=== PATIENT | male | born 1965 | race Two or more races ===

== ENCOUNTER 2016-12-01 12:36 | Inpatient (IN) | payer MEDICARE, MEDICAID ==
[2016-12-01] MEDS ORDERED: Aspirin Low Dose CHEW TAB* 81 MG PO ONE (12:47)
[2016-12-01 13:17] LABS: Hematocrit 42 % (42-52); Hemoglobin 14.5 g/dl (14.0-18.0); Mean Corpuscular HGB Conc 35 g/dl (31-36); Mean Corpuscular Hemoglobin 33 pg (27-31); Mean Corpuscular Volume 96 fL (80-94); Red Blood Count 4.39 10^6/ul (4.0-5.4); Red Cell Distribution Width 14 % (10.5-15); White Blood Count 5.9 10^3/ul (3.5-10.8)
[2016-12-01 13:18] LABS: Add Diff/Slide Review? Slide Review Added; Comments Flag Yes
[2016-12-01 13:29] LABS: Albumin 4.2 g/dL (3.2-5.2); BUN/Creatinine Ratio 18.4 (8-20); Calcium 9.1 mg/dL (8.6-10.3); EGFR African American 118.5 (>60); EGFR Non-African American 92.1 (>60); Globulin 3.5 g/dL (2-4); Potassium 3.7 mmol/L (3.5-5.0); Total Bilirubin 0.8 mg/dL (0.2-1.0); Total Protein 7.7 g/dL (6.4-8.9)
[2016-12-01 13:35] LABS: Troponin I 0.08 ng/mL (<0.04)
--- NOTE | 2016-12-01 13:51 | RAD ---
Indication: Chest pressure. Comparison: None. Technique: Upright AP 1259 hours Report: Linear extrinsic densities superimposed at the LEFT apex. No pneumothorax evident. Clear lungs and pleural spaces. The heart, pulmonary vasculature, and mediastinal contours are unremarkable. IMPRESSION: No evidence for acute intrathoracic disease.
[2016-12-01 14:07] LABS: Mean Platelet Volume 11 um3 (7.4-10.4)
[2016-12-01] MEDS ORDERED: Atorvastatin* 80 MG TAB PO ONE (14:27)
[2016-12-01] MEDS ORDERED: Ticagrelor* 90 MG TAB PO ONE ×2 (14:27→14:30)
[2016-12-01] MEDS ORDERED: Atorvastatin* 80 MG TAB ONE (14:30)
[2016-12-01] MEDS ORDERED: Heparin DRIP 25,000 UNITS(*) 25,000 UNITS/500 ML BAG IVPB SCH (14:30)
[2016-12-01] MEDS ORDERED: Acetaminophen TAB* 325 MG PO PRN (14:33)
[2016-12-01] MEDS ORDERED: Ondansetron INJ* 2 MG/ML VIAL IV PRN (14:33)
[2016-12-01] MEDS ORDERED: oxyCODONE SR TAB(*) 10 MG TAB.SR PO PRN (14:36)
[2016-12-01] MEDS ORDERED: clonazePAM TAB(*) 0.5 MG PO PRN (14:36)
[2016-12-01 14:56] LABS: Hematocrit 44 % (42-52); Mean Corpuscular HGB Conc 34 g/dl (31-36); Mean Corpuscular Hemoglobin 33 pg (27-31); Mean Corpuscular Volume 96 fL (80-94); Mean Platelet Volume 11 um3 (7.4-10.4); Red Blood Count 4.59 10^6/ul (4.0-5.4); Red Cell Distribution Width 14 % (10.5-15); White Blood Count 6.3 10^3/ul (3.5-10.8)
[2016-12-01 14:58] LABS: Comments Flag Yes
[2016-12-01] MEDS ORDERED: Heparin VIAL(*) 5000 UNITS/ML VIAL (FIVE THOUSAND) IV SCH (15:00)
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
[2016-12-01 15:18] LABS: Troponin I 0.11 ng/mL (<0.04)
[2016-12-01] MEDS ORDERED: Iohexol 350 (CONTRAST) 200 ML MDV IV ONE ×3 (15:21→17:17)
[2016-12-01] MEDS ORDERED: Heparin 2 UNITS/ML IVPREMIX* 3,000 ML IV ONE (15:22)
[2016-12-01] MEDS ORDERED: VERAPAMIL 2.5 MG/ML 4 ML VIAL ONE (15:29)
[2016-12-01] MEDS ORDERED: nitroGLYCERIN DRIP* 250 ML ONE ×2 (15:29→16:22)
[2016-12-01] MEDS ORDERED: Heparin(*) 1000 UNIT/ML 10 ML VIAL CATH LAB IV ONE (15:29)
[2016-12-01] MEDS ORDERED: Lidocaine 1% INJ* 10 MG/ML 30 ML SDV ONE (15:29)
[2016-12-01] MEDS ORDERED: fentaNYL* 50 MCG/ML 2 ML VIAL (100 MCG VIAL) ONE (15:44)
[2016-12-01] MEDS ORDERED: Midazolam* 1 MG/ML 5 ML VIAL (5 MG) ONE (15:44)
--- NOTE | 2016-12-01 16:06 | ECHO ---
Patient: JANA ROQUE [facility] Rec#: [id number] : 1965 Date: 12/01/2016 Age: 51y Height: 180 cm / 70.9 in Weight: 83 kg / 182.9 lbs Sex: M BSA: 2.03 Room#: [id number] Admit Date#: 12/01/2016 Type: Outpatient Referring: Lokesh Weir NP Reading: Jose L Valdez DO Cuff Folder: Jose Padilla RDCS Transthoracic Echocardiogram Indication: NSTEMI BP: 142/97 HR: 54 Rhythm: NSR Findings History: NSTEMI Technical Comments: The study quality is good. COMPLETED 1550 Left Ventricle: The left ventricular chamber size is normal. Mild concentric left ventricular hypertrophy is observed. Global left ventricular wall motion and contractility are within normal limits. There is normal left ventricular systolic function. The estimated ejection fraction is 55-60%. Discrepant data regarding diastolic function. Left Atrium: The left atrial chamber size is normal. Right Ventricle: The right ventricular chamber size and systolic function are within normal limits. Right Atrium: The right atrial cavity size is normal. Aortic Valve: The aortic valve is trileaflet. There is no evidence of aortic regurgitation. There is no evidence of aortic stenosis. Mitral Valve: The mitral valve leaflets appear normal. There is a trace of mitral regurgitation. There is no evidence of mitral stenosis. Tricuspid Valve: The tricuspid valve appears normal in structure and function. There is trace tricuspid regurgitation. Unable to estimate the right ventricular systolic pressure. Pulmonic Valve: The pulmonic valve appears normal. There is no evidence of pulmonic regurgitation. There is no pulmonic stenosis. Pericardium: There is no significant pericardial effusion. Aorta: There is mild dilatation of the ascending aorta. There is no dilatation of the aortic arch. There is mild dilatation of the aortic root. Pulmonary Artery: The main pulmonary artery is not well visualized. Venous: The venous system is not well visualized. Conclusions The left ventricular chamber size is normal. Mild concentric left ventricular hypertrophy is observed. There is normal left ventricular systolic function. The estimated ejection fraction is 55-60%. Global left ventricular wall motion and contractility are within normal limits. The left atrial chamber size is normal. The right ventricular chamber size and systolic function are within normal limits. Unable to estimate the right ventricular systolic pressure. No significant valvular abormalities noted There is no significant pericardial effusion. There is mild dilatation of the ascending aorta. There is mild to moderate dilatation of the aortic root. No prior studies available for comparison at time of interpretation. Measurements Name Value Normal Range RVIDd (AP) MM 1.9 cm - Name Value Normal Range RVIDd (AP) 2D 1.9 cm (0.9 - 2.6) RVDdMajor (2D) 2.1 cm (2.2 - 4.4) RAd ISD 4CH 4.4 cm (3.4 - 4.9) RA (A4C)W 1.1 cm (2.9 - 4.6) IVSd (2D) 1.1 cm (0.6 - 1) LVPWd (2D) 1.1 cm (0.6 - 1) LVIDd (2D) 5.3 cm (3.6 - 5.4) LVIDs (2D) 4.1 cm - LV FS (2D) 23 % (25 - 45) Aortic Annulus 2 cm (1.4 - 2.6) Ao root diameter (2D) 4.2 cm (2.1 - 3.5) Ascending Ao 3.6 cm (2.1 - 3.4) Aortic arch 2.9 cm (1.8 - 3.4) LA dimension (AP) 2D 3 cm (2.3 - 3.8) LAd ISD 4CH 3.4 cm (2.9 - 5.3) LA ISD 4CH W 2.6 cm (2.5 - 4.5) Name Value Normal Range LA ESV SP 4CH (A/L) 17 ml - LA ESV SP 2CH (A/L) 52 ml - LA ESV BP (A/L) 34 ml - LA ESV BP (A/L) index 16.74 ml/m2 - LA ESV SP 4CH (MOD) 15 ml - LA ESV SP 2CH (MOD) 56 ml - Name Value Normal Range MV E-wave Vmax 0.49 m/sec - MV deceleration time 213 msec - MV A-wave Vmax 0.52 m/sec - MV E:A ratio 0.96 ratio - LV septal e' Vmax 0.05 m/sec - LV lateral e' Vmax 0.05 m/sec - LV E:e' septal ratio 9.8 ratio - LV E:e' lateral ratio 9.8 ratio - Name Value Normal Range LVOT diameter 2.1 cm - LVOT Vmax 0.8 m/sec - Name Value Normal Range TR Vmax 1.5 m/sec - TR peak gradient 9 mmHg - IVC diameter 1.31 cm - Name Value Normal Range PV Vmax 0.7 m/sec -
[2016-12-01] MEDS ORDERED: Nitroglycerin TAB 0.4 MG* 0.4 MG TAB SL PRN (17:54)
[2016-12-01] MEDS ORDERED: NS 0.9% 1000 ML* 1,000 ML IV SCH (18:00)
[2016-12-01] MEDS ORDERED: nitroGLYCERIN DRIP* 25,000 MCG in PREMIX* 0 ML IV SCH (19:00)
[2016-12-01 19:55] LABS: Troponin I 0.24 ng/mL (<0.04)
--- NOTE | 2016-12-01 20:45 | HP ---
HISTORY AND PHYSICAL: DATE OF ADMISSION: 12/01/16 PRIMARY CARE PROVIDER: Dr. Gila Frey. She is located in [facility]. Her personal cellphone number is [phone]. Her office number is . ATTENDING PHYSICIAN: Amy Burt MD* (dictated by Lokesh Weir NP) CHIEF COMPLAINT: Chest pain. HISTORY OF PRESENT ILLNESS: Mr. Chance is a 51-year-old male patient, he has a history of hypertension, neuropathy, hyperlipidemia, hepatitis C, polysubstance abuse, COPD, chronic back pain, splenomegaly. He does have a history of HIV as well. He comes in today. He was visiting up in the [facility] to see what the sex of his granddaughter was going to be. He left last Sunday, while getting into the cab last Sunday, he noticed that when moving luggage, he started having chest discomfort. He went into the lobby of his building. He sat down, the discomfort went away. The star route mail driver was actually going to call the ambulance because he was not looking well. He refused this because he wanted to see what the sex of his grandchild was. He got into the car, the pain went away. He had no more symptoms throughout the week; however, this morning he woke up, he was brushing his teeth, around 10 o'clock started having an episode of substernal chest pain, associated shortness of breath, lasted a couple of minutes. Then it started again, lasted a little bit longer and it felt worse, again in the center of his chest and then it happened a third time where he was almost doubled over in pain, so he called 911. The pain was getting worse, so he decided to come in to the ER. Fortunately, he got here. He received 4 aspirin, he chewed them and the pain is now gone. He has not had any more recurrence of the pain. The patient states that about a week ago, he did state that he had an upper respiratory infection. He took a Z-Matthew, the symptoms resolved, but he says the pain today is nothing like he has ever felt before and the pain is not positional. It is not reproducible. It does not get worse if he takes a deep breath. He denies any recent fevers or chills. He does state that he does have bilateral leg pain, but he has a history of neuropathy. The patient was ultimately found to have an elevated troponin of 0.08 and the hospitalist service was asked to evaluate for admission. He denies any associated nausea or vomiting. PAST MEDICAL HISTORY: Significant for: 1. Hypertension. 2. Neuropathy. 3. Hyperlipidemia. 4. Hepatitis C. 5. Polysubstance abuse. 6. COPD. 7. Chronic back pain. 8. Splenomegaly. 9. HIV. PAST SURGICAL HISTORY: He has had a pneumothorax in the past. HOME MEDICATIONS: According to the list that we were able to obtain include: 1. Klonopin 1 to 2 mg every 8 hours as needed. 2. Norvasc 5 mg daily. 3. AndroGel 10 mg topically daily. 4. Paxil 20 mg daily. 5. Oxycodone 30 mg p.o. every 8 hours as needed. 6. Fish oil 1000 mg p.o. b.i.d. 7. Nadolol 40 mg p.o. daily. 8. Neurontin 600 mg p.o. every 8 hours. 9. Odefsey 1 tablet p.o. daily. 10. Marinol 5 mg p.o. b.i.d. 11. Cardura 4 mg p.o. daily. 12. Tivicay 50 mg daily. 13. Vitamin D3 at 50,000 units weekly. 14. ProAir 2 puffs inhaled 4 times a day as needed. 15. Methadone. He is unsure of the dose as he only gets prescribed a week's supply at a time and he tries to stretch this supply over a 2 to 3 week period, so the dose is unknown. We are trying to obtain this as he is going to bring in his own medication. ALLERGIES TO MEDICATIONS: Include PENICILLIN. FAMILY HISTORY: His father had an CO at the age of 42. SOCIAL HISTORY: He is a pack a day smoker for about 40 years. He does not drink alcohol. He has a former history of polysubstance abuse. Surrogate decision maker is his significant other. REVIEW OF SYSTEMS: There is no documented fever. He denied any weight changes to me. He denies having any double vision. There is no ear discharge. He denies having any rhinorrhea. There is no sore throat. There is no thyroid enlargement. There was chest pain per my HPI. There was no orthopnea. No nocturnal dyspnea. There is no abdominal pain. There is no nausea. No vomiting. No dysuria. No frequency. There is no loss of consciousness. No pruritus and no skin ulcerations. Review of 14 systems completed, all others negative. PHYSICAL EXAMINATION GENERAL: At this time, Mr. Chance is a 51-year-old male patient. He appears to be older than stated age. He appears to be chronically ill. VITAL SIGNS: Blood pressure 142/97 with a pulse of 54, respirations 18, O2 sat 93%, and temperature 99.2. HEENT: Head: Atraumatic and normocephalic. Eyes: EOMs intact. Sclerae anicteric and not pale. Throat: Oral mucosa appears to be dry. No oropharyngeal erythema. NECK: Supple. LUNGS: Clear to auscultation bilaterally. No wheezes, rales, or rhonchi. HEART: Sounds S1, S2. Regular rate and rhythm. He is bradycardic. ABDOMEN: Soft, flat, and nontender. Bowel sounds present. EXTREMITIES: Pulses 2+ throughout. He is able to move all 4 extremities with 5 /5 strength. NEUROLOGIC: The patient is awake. He is alert. He is oriented x3. His copy cutter are equal. Tongue midline. He had no gross focal deficits. SKIN: Intact. LABORATORY DATA AND DIAGNOSTIC STUDIES: Labs today reveal a WBC of 5.9, RBC of 4.39, hemoglobin 14.5, hematocrit of 42, platelet count of 64. His D-dimer was less than 200. His sodium was 133, potassium 3.7, chloride of 105, bicarb 26, BUN 16, creatinine of 0.87, his glucose was 114, lactic 0.7, calcium 9.1. Total bili 0.8, AST 22, ALT 25, alk phos 47. CK 97, CK-MB 2.4, troponin 0.08. Albumin of 4.2. He had a chest x-ray obtained today, which revealed no evidence for acute intrathoracic disease. There was an EKG obtained today as well. I do not have a previous for comparison. This showed a sinus bradycardia, rate of 54. He appears to have LVH. No ST elevations or T-wave inversions were noted. Old medical records were reviewed. ASSESSMENT AND PLAN: Mr. Chance is a 51-year-old male patient with complex medical history coming in to the ER today with complaints of chest discomfort, now found to have an indeterminate troponin. The concern for the chest pain was acute coronary syndrome. He will be admitted under inpatient status for: 1. Chest pain, concern for acute coronary syndrome and ST elevation myocardial infarction: At this point, I did discuss the case with Dr. Jose L Valdez of Cardiology, recommended Brilinta 180 now and then heparin drip and aspirin along with statin therapy. I did touch base with the patient's primary care provider due to the thrombocytopenia. The platelets of this patient typically run around 60,000 according to her. She is going to be sending over labs and reports. The patient does have again a history of HIV, splenomegaly and in addition to this, hepatitis C which certainly is probably contributing to the thrombocytopenia. We will get a Hematology/Oncology consultation to help us determine if dual antiplatelet therapy will be appropriate. Dr. Hernandez has been involved by Dr. Valdez. The plan will be again heparin drip, ICU. He is fortunately not having any chest pain now. I have ordered an echo. We will cycle the troponins and will continue to follow. 2. Hypertension: I will continue his medications as prescribed. 3. Neuropathy: Continue gabapentin. 4. Hyperlipidemia: We will check a lipid panel and go ahead and place him on statin therapy. 5. Hepatitis C and HIV: We will continue his medications. Actually, his virals according to his primary have been normal. His T4 count according to the primary, again she needs to get the records but to her knowledge, they have been running in the 300s. 6. Polysubstance abuse: I will try to get the patient's methadone dose and prescribe this. 7. Chronic obstructive pulmonary disease: We will go ahead and put him on p.r.n. albuterol. 8. Chronic pain: Continue medications as prescribed. 9. DVT prophylaxis: He will be on a heparin drip. 10. Code status is full code. 11. Fluids, electrolytes, and nutrition: He is n.p.o. TIME SPENT: Time spent on the admission was 90 minutes; greater than half the time was spent [id number] with the patient obtaining my history and physical, other half of the time spent going over the plan of care with the patient and implementing plan of care. I did discuss the plan of care with my attending, Dr. Burt, she is in agreement. LOKESH WIER NP CC: Dr. Gila Frey; Dr. Hernandez; Jose L Valdez DO; Dr. Blevins [id number]/[id number] #: [id number] [facility]
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
[2016-12-01] MEDS: Dronabinol CAP* 2.5 MG PO SCH (22:50)
[2016-12-01] MEDS: Ticagrelor* 90 MG TAB PO SCH (22:50)
[2016-12-01] MEDS: Gabapentin CAP(*) 300 MG PO SCH (22:50)
[2016-12-01 23:01] LABS: Troponin I 0.53 ng/mL (<0.04)
[2016-12-02 05:57] LABS: Hematocrit 39 % (42-52); Hemoglobin 13.4 g/dl (14.0-18.0); Mean Corpuscular HGB Conc 34 g/dl (31-36); Mean Corpuscular Hemoglobin 33 pg (27-31); Mean Corpuscular Volume 97 fL (80-94); Mean Platelet Volume 11 um3 (7.4-10.4); Red Blood Count 4.03 10^6/ul (4.0-5.4); Red Cell Distribution Width 14 % (10.5-15); White Blood Count 8.3 10^3/ul (3.5-10.8)
[2016-12-02 06:00] LABS: Comments Flag Yes
[2016-12-02 06:09] LABS: Albumin 3.7 g/dL (3.2-5.2); BUN/Creatinine Ratio 13.6 (8-20); Calcium 8.5 mg/dL (8.6-10.3); EGFR Non-African American 90.9 (>60); Globulin 3.1 g/dL (2-4); HDL Cholesterol 20.2 mg/dL; Potassium 3.3 mmol/L (3.5-5.0); Total Bilirubin 0.5 mg/dL (0.2-1.0); Total Protein 6.8 g/dL (6.4-8.9)
[2016-12-02 06:33] LABS: Troponin I 1.2 ng/mL (<0.04)
[2016-12-02] MEDS: Gabapentin CAP(*) 300 MG PO SCH ×3 (06:35→21:13)
[2016-12-02] MEDS ORDERED: Potassium Chlor TAB* 20 MEQ TAB.ER PO ONE (07:13)
--- NOTE | 2016-12-02 07:25 | PN ---
Subjective Date of Service: 12/02/16 Interval History: . no new c/o no current pain s/p cath yesterday with BM to L Cx. troponin values still increasing LAD dz noted --> plan for likely stress test (can be outpatient) to evaluate that distribution. patient in good spirits. Family History: Unchanged from Admission Social History: Unchanged from Admission Past Medical History: Unchanged from Admission Objective Active Medications: . Acetaminophen (Tylenol Tab*) 650 mg PO Q4H PRN PRN Reason: FEVER/PAIN Amlodipine Besylate (Norvasc Tab*) 5 mg PO DAILY [facility] Aspirin (Aspirin Low Dose Tab*) 81 mg PO DAILY [facility] Clonazepam (Klonopin Tab(*)) 1 mg PO Q8H PRN PRN Reason: ANXIETY Doxazosin Mesylate (Cardura Tab*) 4 mg PO DAILY [facility] Dronabinol (Marinol Cap*) 5 mg PO BID [facility] Last Admin: 12/01/16 22:50 Dose: 5 mg Gabapentin (Neurontin Cap(*)) 600 mg PO Q8HR [facility] Last Admin: 12/02/16 06:35 Dose: 600 mg Nitroglycerin/Dextrose 25,000 (mcg/ IV Solution) 250 mls @ 1.8 mls/hr IV .PER PARAMETERS JEANNE PRN Reason: 3 MCG/MIN Methadone HCl (Dolophine Tab*) 10 mg PO DAILY [facility] Nitroglycerin (Nitroglycerin Tab 0.4 Mg*) 0.4 mg SL Q5M PRN PRN Reason: ANGINA Dolutegravir Sodium ([Tivicay] 50 Mg) 50 mg PO DAILY [facility] Emtricitabine- Rilpivirine-Teno [ Odefsey 200-25-25 Mg ] 1 tab PO DAILY [facility] Ondansetron HCl (Zofran Inj*) 4 mg IV Q6H PRN PRN Reason: NAUSEA Oxycodone HCl (Oxycontin(*)) 30 mg PO Q8HR PRN PRN Reason: PAIN Paroxetine HCl (Paxil Tab*) 20 mg PO DAILY [facility] Potassium Chloride (Klor Con Er Tab*) 40 meq PO ONCE ONE Stop: 12/02/16 07:14 Rosuvastatin Calcium (Crestor (Nf)) 10 mg PO QPM [facility] Ticagrelor (Brilinta*) 90 mg PO BID [facility] Last Admin: 12/01/16 22:50 Dose: 90 mg . Vital Signs 12/01/16 12/01/16 12/01/16 14:33 15:00 16:38 Temperature 98.2 F 98.1 F Pulse Rate 57 Respiratory 15 14 Rate Blood Pressure 115/75 (mmHg) O2 Sat by Pulse 99 Oximetry 12/01/16 12/01/16 12/01/16 17:00 18:00 18:19 Temperature Pulse Rate Respiratory 16 16 Rate Blood Pressure 160/97 (mmHg) O2 Sat by Pulse Oximetry Appearance: no distress Ears/Nose/Mouth/Throat: NL Teeth, Lips, Gums, Clear Oropharnyx Neck: NL Appearance and Movements; NL JVP Respiratory: Symmetrical Chest Expansion and Respiratory Effort Cardiovascular: NL Sounds; No Murmurs; No JVD Abdominal: NL Sounds; No Tenderness; No Distention Lymphatic: No Cervical Adenopathy Extremities: No Edema Skin: No Rash or Ulcers Neurological: Alert and Oriented x 3 Lines/Tubes/Other Access: Clean, Dry and Intact Peripheral IV Nutrition: Taking PO's Result Diagrams: 12/02/16 05:18 12/02/16 05:18 Assess/Plan/Problems-Billing . Assessment: 51 year old man with chest pain, NSTEMI, s/p cath with BM stent to LCx and LAD dz noted but not treated because of unclear relation to presentation. PMH complicated and includes HIV, HepC, thrombocytopenia. Current Medications: - Acetaminophen 650 mg PO Q4H PRN FEVER/PAIN - Amlodipine Besylate (Norvasc Tab) 5 mg PO DAILY - Aspirin 81 mg PO DAILY - Clonazepam (Klonopin Tab) 1 mg PO Q8H PRN ANXIETY - Doxazosin 4 mg PO DAILY - Dronabinol (Marinol Cap) 5 mg PO BID - Gabapentin (Neurontin Cap) 600 mg PO Q8HR - Nitroglycerin drip (NOW OFF) - Methadone HCl (Dolophine Tab) 10 mg PO DAILY - Nitroglycerin 0.4 mg SL Q5M PRN ANGINA - Dolutegravir Sodium (Tivicay) 50 mg PO DAILY - Kiylkpzqrntvl-Viabztmpwlp-Mtvi [Odefsey 200-25-25 Mg] 1 tab PO DAILY - Ondansetron HCl (Zofran) 4 mg IV Q6H PRN NAUSEA - Oxycodone HCl (Oxycontin) 30 mg PO Q8HR PRN PAIN - Paroxetine HCl (Paxil) 20 mg PO DAILY - Rosuvastatin Calcium (Crestor) 10 mg PO QPM - Ticagrelor (Brilinta) 90 mg PO BID - Patient Problems (1) NSTEMI (non-ST elevated myocardial infarction) Current Visit: Yes Status: Acute Priority: High Code(s): I21.4 - NON-ST ELEVATION (NSTEMI) MYOCARDIAL INFARCTION Comment: - DAPT - ASA and Brilinta - Nitro gtt off - no current pain - troponin values noted -- LAD disease noted > ?stress test at some point to define significance of this lesion -- cardiology following and will direct that decision - bradycardic; no BB now - BP reasonable - Statin on board - Norvasc - nitro SL for pain, prn (2) HIV (human immunodeficiency virus infection) Current Visit: Yes Status: Chronic Priority: High Comment: - continue HAART - thrombocytopenia may be related to HAART or HIV. - viral counts reportedly undetectable (3) Hepatitis C Current Visit: Yes Status: Chronic Priority: High Comment: - viral counts undetectable, by report. (4) Thrombocytopenia Current Visit: Yes Status: Acute Code(s): D69.6 - THROMBOCYTOPENIA, UNSPECIFIED SNOMED Code(s): 760496602 Comment: - following platelet levels - plt 64 (stable) on 12/02/16 (5) HTN (hypertension) Current Visit: Yes Status: Acute Code(s): I10 - ESSENTIAL (PRIMARY) HYPERTENSION SNOMED Code(s): 22816379 (6) Hyperlipidemia Current Visit: Yes Status: Chronic Priority: High Code(s): E78.5 - HYPERLIPIDEMIA, UNSPECIFIED Comment: - Continue statin / crestor (7) Neuropathy Current Visit: Yes Status: Chronic Priority: Medium Code(s): G62.9 - POLYNEUROPATHY, UNSPECIFIED Comment: - Continue Gabapentin as ordered (8) Polysubstance abuse Current Visit: Yes Status: Chronic Priority: Medium Code(s): F19.10 - OTHER PSYCHOACTIVE SUBSTANCE ABUSE, UNCOMPLICATED Comment: - no current pain reported - continue outpatient methadone dosing.
[2016-12-02] MEDS ORDERED: amLODIPine TAB* 5 MG PO SCH (09:00)
[2016-12-02] MEDS: Ticagrelor* 90 MG TAB PO SCH ×2 (09:49→21:13)
[2016-12-02] MEDS: Methadone TAB* 10 MG PO SCH (09:50)
[2016-12-02] MEDS: Aspirin Low Dose CHEW TAB* 81 MG PO SCH (09:52)
[2016-12-02] MEDS: Dronabinol CAP* 2.5 MG PO SCH ×2 (09:53→21:13)
[2016-12-02] MEDS: PARoxetine HCL TAB* 20 MG PO SCH (10:49)
[2016-12-02] MEDS: Doxazosin TAB* 2 MG PO SCH (10:49)
[2016-12-02] MEDS: Nadolol TAB* 40 MG PO SCH (10:50)
[2016-12-02] MEDS: DOLUTEGRAVIR SODIUM 50 MG PO SCH (15:13)
[2016-12-02] MEDS: RILPIVIRINE PO SCH (15:13)
[2016-12-02] MEDS: TENOFOVIR ALAFENAMIDE PO SCH (15:13)
[2016-12-02] MEDS: EMTRICITABINE PO SCH (15:13)
[2016-12-02] MEDS ORDERED: CMCS: Rosuvastatin (NF) 10 MG TAB PO SCH (18:00)
[2016-12-02] MEDS ORDERED: Methadone TAB* 10 MG PO ONE (19:43)
--- NOTE | 2016-12-02 19:54 | PN ---
Progress Note - Progress Note Note: Received called from the patients primary care physician who confirmed the patient is on Methadone 100 mg . He says he only takes 80 mg. Will give him half the dose tonight because he has missed a couple of days.
--- NOTE | 2016-12-02 22:07 | CATH ---
CARDIAC CATHETERIZATION AND INTERVENTIONAL REPORT: DATE OF PROCEDURE: 12/01/16 INDICATION FOR PROCEDURE: Patient with NSTEMI with severe episodes of chest discomfort, abnormal troponins now for cardiac catheterization to assess for coronary artery disease and possible intervention. PROCEDURE: Coronary arteriography, balloon angioplasty and placement of a 2.75 x 32 mm long bare metal Rebel stent in the distal to mid circumflex followed by placement of a 3.0 x 8 mm long Rebel bare metal stent in the proximal circumflex. DESCRIPTION OF PROCEDURE: The patient was interviewed and examined in the emergency room with risks and benefits were explained to him and his family. He understood them and wished to proceed. The patient had already received Brilinta 180 mg as well as aspirin therapy. The patient was brought to the cardiovascular laboratory where a formal time-out was performed. The right radial artery was assessed for size and found to be acceptable for an approach and as such the patient was prepped and draped in a sterile fashion. The right radial artery was anesthetized with 1% lidocaine and under ultrasound guidance, the right radial artery was cannulated and a 6-Slovak Glidesheath was placed. Coronary arteriography to the right coronary artery was performed utilizing a 5- Slovak 4 curved TIG catheter. Coronary arteriography to the left coronary artery was obtained utilizing 6-Slovak VL 3.5 curved catheter. Of note, on initial insertion of the right radial artery sheath, the radial artery cocktail consisting of 3000 units of heparin, 300 micrograms nitroglycerin and 3 mg of verapamil were given. Once the decision was made to intervene in the circumflex artery, the patient received additional heparin boluses to maintain an ACT at 250 or greater. Guiding views were obtained utilizing the 6 Slovak VL 3.5 curved guide catheter. An 0.014 All Star wire was advanced to the distal portion of the circumflex artery Attempts were made to place a second wire in the distal most portion of the circumflex, but this was not able to be done and as such balloon angioplasty was performed to the distal lesion utilizing a 2.5 x 15 mm long Emerge balloon. Following this, a second All Start wire was advanced and placed in the second obtuse marginal branch. Balloon angioplasty of the ostium was performed utilizing a 2.25 x 8 mm long balloon. Following this, the 2.75 x 32 mm long bare metal stent was deployed in the distal to mid circumflex. Balloon angioplasty at high pressures utilizing an NC 2.75 x 12 mm balloon was performed. Following this there was a focal area of haze and compromise he proximal portion of the stent and despite balloon inflations, it seemed to persist and as such as 3.0 x 8 mm long bare metal stent was deployed with resolution of this. The artery was then assessed with the stent balloon withdrawn. At the end of the case, the catheter was removed and the radial artery sheath was removed and a hemostasis was obtained with Vasc Band. Reverse Barbeau was assessed and found to be AB. The total contrast used was 260 mL of Omnipaque dye. The total radiation exposure included 34.5 minutes of fluoro time. The air kerma radiation was 2101 milligray. The DAP radiation was 73178 microgray per meter squared. RESULTS: CORONARY ARTERIOGRAPHY: A. Right coronary artery - A dominant vessel with a mid area of 45% to 50% narrowing noted. It continued to supply a large low lying acute marginal branch , which supplied the distal intraventricular septum as well as continuing on to the posterior descending artery, which supplied the more proximal portion of the intraventricular septum. Of note, the low lying acute marginal branch supply not only the distal septum, but the distal anterior wall and apical region. B. Left coronary artery. 1. Left main - widely patent. 2. Left anterior descending artery. The left anterior descending artery had mild 20% narrowing in its proximal portion, just after the second larger septal cut plug packer there was a 75% narrowing noted. Past this point, was the take off of the mid diagonal branch with no significant disease and there was no significant disease to the distal portion of LAD, which traversed toward the apical region. 3. Circumflex artery - a nondominant vessel supplying a thin first obtuse marginal branch with a moderate sized second obtuse marginal branch followed by a third obtuse marginal branch, which had diffuse disease with an ostial 80% to 85% stenosis noted. Just prior to this 3rd obtuse marginal branch was narrowing of the vessel with haze with encompassing a long diffusely diseased segment of at least 80% stenosis leading to a 90% before a low lying last moderate sized obtuse marginal branch. INTERVENTION IN TO CIRCUMFLEX: Successful reduction of critical 90% stenosis and diffusely long segment of 80% stenosis utilizing balloon angioplasty and placement of a 2.75 x 32 mm long bare metal stent with a 3.0 x 8 mm long bare metal stent within the other stent for a haze area that is not improved with balloon angioplasty with TIMI3 flow, no dissection seen, 0% residual stenosis The 3rd diagonal branch ostial lesion of 85% was treated with balloon angioplasty with a residual narrowing of 75% to 80% noted, some of which may be secondary to spasm. OVERALL ASSESSMENT: Significant multivessel disease involving diffusely long segments within the circumflex treated with balloon angioplasty and stenting as described above. Patient still has residual disease involving the mid LAD as well as the ostium of the 3rd obtuse marginal branch, which for now will be treated medically with evaluation for potential need to intervene on the LAD vessel. Risk factor management with cholesterol management has been instituted by Dr. Jose L Valdez, the patient's primary envelope folding machine operator in the hospital and with institution of [facility]. Ongoing medical management, risk factor management will be pursued with the hospitalist and Dr. Valdez, especially consideration for smoking cessation as the patient has a long-term history of this. CC: Jose L Valdez DO; Eduardo Blevins MD; Gila Frey NP.* [id number]/[facility] #: [id number] [facility]
[2016-12-03] MEDS: Gabapentin CAP(*) 300 MG PO SCH ×2 (05:13→13:48)
[2016-12-03 05:44] LABS: Hematocrit 38 % (42-52); Hemoglobin 13.3 g/dl (14.0-18.0); Mean Corpuscular HGB Conc 35 g/dl (31-36); Mean Corpuscular Hemoglobin 33 pg (27-31); Mean Corpuscular Volume 96 fL (80-94); Mean Platelet Volume 10 um3 (7.4-10.4); Red Blood Count 3.98 10^6/ul (4.0-5.4); Red Cell Distribution Width 14 % (10.5-15); White Blood Count 5.2 10^3/ul (3.5-10.8)
[2016-12-03 05:47] LABS: Comments Flag Yes
[2016-12-03 05:57] LABS: BUN/Creatinine Ratio 13.5 (8-20); Calcium 8.1 mg/dL (8.6-10.3); EGFR African American 142.8 (>60); EGFR Non-African American 111.1 (>60); Potassium 3.4 mmol/L (3.5-5.0)
[2016-12-03] MEDS ORDERED: Potassium Chlor TAB* 10 MEQ TAB.ER PO ONE (07:42)
[2016-12-03] MEDS ORDERED: KCL 20 MEQ/100 ML IVPREMIX* 20 MEQ/100 ML BAG IV ONE (07:43)
[2016-12-03] MEDS ORDERED: amLODIPine TAB* 5 MG PO SCH (08:26)
[2016-12-03] MEDS: Doxazosin TAB* 2 MG PO SCH (10:08)
[2016-12-03] MEDS: Nadolol TAB* 40 MG PO SCH (10:09)
[2016-12-03] MEDS: EMTRICITABINE PO SCH (10:10)
[2016-12-03] MEDS: RILPIVIRINE PO SCH (10:10)
[2016-12-03] MEDS: TENOFOVIR ALAFENAMIDE PO SCH (10:10)
[2016-12-03] MEDS: DOLUTEGRAVIR SODIUM 50 MG PO SCH (10:11)
--- NOTE | 2016-12-03 10:11 | PN ---
Hospitalist Progress Note . HOSPITALIST DISCHARGE NOTE: See dc instructions and summary by me. Patient stable for dc dc instructions reviewed with the patient at the bedside. DC patient home today.
[2016-12-03] MEDS: Ticagrelor* 90 MG TAB PO SCH (10:14)
[2016-12-03] MEDS: Methadone TAB* 10 MG PO SCH (10:14)
[2016-12-03] MEDS: PARoxetine HCL TAB* 20 MG PO SCH (10:15)
[2016-12-03] MEDS: Aspirin Low Dose CHEW TAB* 81 MG PO SCH (10:15)
[2016-12-03] MEDS ORDERED: Methadone TAB* 10 MG PO ONE (10:33)
[2016-12-03] MEDS: Dronabinol CAP* 2.5 MG PO SCH (10:45)
[2016-12-03 13:21] VITALS: BP 113/59
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
--- NOTE | 2016-12-04 05:39 | DS ---
DISCHARGE SUMMARY: DATE OF ADMISSION: 12/01/16 DATE OF DISCHARGE: 12/03/16 PRIMARY CARE PROVIDER: Gila Frey NP, in [facility]. Cell phone number [phone], office number [phone]. TURKISH RUBBER: Dr. Jose L Valdez, [facility] Cardiology. HEMATOLOGY SPECIAL DEPUTY SHERIFF: Dr. Eduardo Blevins, [facility]. PRINCIPAL DISCHARGE DIAGNOSES: 1. Non-ST elevation myocardial infarction, status post cardiac catheterization with bare-metal stent placed to left circumflex - please see separate Cardiology consult note and cardiac catheterization from Dr. Jose L Valdez and Dr. Henrry Hernandez, respectively. 2. Thrombocytopenia with counts below 50,000 but with history of platelets in the same range. SECONDARY DIAGNOSES/PREEXISTING DIAGNOSES: 1. Hypertension. 2. Neuropathy. 3. Hyperlipidemia. 4. Hepatitis C - status post antiviral treatment and QVAR. 5. Polysubstance abuse - currently on methadone for previous heroin addiction. 6. Chronic obstructive pulmonary disease. 7. Chronic back pain. 8. Splenomegaly and thrombocytopenia, thought secondary to splenic sequestration in addition to possibly other causes. 9. Human immunodeficiency virus - viral counts below detectable limits. DISCHARGE MEDICATION REGIMEN: 1. Acetaminophen 650 mg by mouth every 4 hours as needed for pain/fever. 2. Aspirin 81 mg by mouth daily. 3. Brilinta 90 mg by mouth twice daily. (rx given) 4. Methadone 80 mg by mouth daily. 5. Nitroglycerin 0.4 mg tab sublingually every 5 minutes up to 3 times and call 911.(rx given) 6. Crestor 10 mg by mouth in the evening (written prescription given).(rx given ) 7. Clonazepam 2 mg by mouth every 8 hours as needed for anxiety. 8. Gabapentin 600 mg by mouth every 8 hours. 9. Doxazosin 4 mg by mouth daily. 10. Albuterol sulfate/Pro-Air 2 puffs inhaled 4 times daily as needed. 11. Cholecalciferol 50,000 units by mouth weekly. 12. Amlodipine 5 mg by mouth daily. 13. Mohawk-3 fatty acids 1000 mg by mouth twice daily. 14. Marinol 5 mg by mouth twice daily. 15. Clonazepam 1 mg by mouth every 8 hours as needed (as opposed to 2 mg as an option). 16. Emtricitabine/rilpivirine/tenofovir (Odefsey) 200/25/25 mg 1 tablet by mouth daily. 17. Tivicay (dolutegravir) 50 mg by mouth daily. 18. Paxil 20 mg by mouth daily. 19. Oxycodone extended release 30 mg by mouth every 8 hours as needed. 20. Testosterone 10 mg topically every morning/AndroGel. DISCHARGE INSTRUCTIONS: Followup lab work on 12/05/16 - CBC with results to Gila Frey NP, at fax number [phone]. HISTORY OF PRESENT ILLNESS AND HOSPITAL COURSE: Please see the H and P by Lokesh Weir NP, on 12/01/16. In brief, Mr. Chance is a 51-year-old male patient with a history of hypertension, neuropathy, hyperlipidemia, hepatitis C, polysubstance abuse, COPD, chronic back pain, splenomegaly, and HIV who was visiting [place] to visit his daughter and son-in-law when he started experiencing chest pain. It went away with rest but then, he re-experienced the pain and it was getting worse. So, he decided to come to the emergency room. He received aspirin on arrival and was started on anticoagulation and received additional antiplatelet therapy and was taken to cardiac catheterization. This was accomplished by Dr. Henrry Hernandez. Please see his cardiac catheterization procedure note for more details, but in summary, the patient had angioplasty to his left circumflex and a bare-metal stent placed out of consideration for the possibility need to withhold or interrupt dual- antiplatelet therapy because of pre- existing thrombocytopenia and splenomegaly. Relating to that, the patient has a history of hep C and portal hypertension and is also HIV positive and undergoing HAART therapy, all of which can, by different mechanisms, cause thrombocytopenia. During the hospitalization, the patient's platelets were generally above 50,000, although today, the day of discharge, his platelet count was 46K, raising some concern and that will be discussed below and that warrant's follow up of his CBC ( platelet count). The patient was started on aspirin and Brilinta. He was given a 5-day supply of Brilinta at discharge and he is being enrolled in a 30- day free-trial program and this is being arranged by case management and nursing. The patient's pharmacy is identified as [facility] on [address] [place] [address] --- phone number is [phone]. Of note, [facility] does not allow electronic prescribing, so the Crestor and SL nitroglycerin which were the new prescriptions other than Brilinta and ASA, were given in paper form to the patient. He does not have a local pharmacy and so, if he chooses to stay locally, he can have that filled at any pharmacy, and I can have it electronically prescribed if he tells me where to send it. In terms of the patient's followup care, it was not clear exactly where this will take place. I had a conversation with Gila Frey NP, and she is expecting him early this week down in [place]. He is being discharged on 12/03/16, and I encouraged his family to bring him down to [place] for followup labs on 12/05/16, and also for post acute care to include reconciliation of hospital information and medications, and so on. It is clear SRIKANTH Frey know him very well and is expecting to arrange cardiac and hematology consultations upon his arrival there. One medication issue was the patient's methadone. Apparently, he goes to methadone clinic weekly where he receives dosing for 100 mg daily, though he only takes 80 mg by mouth daily and he stockpiles enough methadone to go on trips, such as to [place]. It seems that there should be some mechanism for him to be able to visit his family without having to take a supply of methadone that cannot be easily verified or tracked in a more legitimate way. I would suggest dealing with the methadone clinic or coordinating through his primary care provider for trips like this. I do not know the timing of his most recent supply of methadone, but he tells me he ran out of the reserve that he created by the method above and I did call his methadone clinic to verify that he receives 100 mg by mouth daily. The patient for the first part of the hospitalization was getting 10 mg and actually did rather well and it was only until he realized he was not getting the 80 mg dose that he objected. In other words, there were no physical signs of withdrawal, though I did not want to have such an event occur to prove he needs it. In terms of the other medication changes, his nadolol was decreased from 40 mg to 20 mg for bradycardia in the 50s. I understand from his primary care doctor that he normally runs, if anything, tachycardic. Because of the long-acting nature of nadolol, it might have been that the 40 mg was still in his system on hospital day 2 and so, I continued him on 20 mg and he did well with that. The patient is prone to extreme anxiety and I witnessed that first hand as I was going over the major events of the hospitalization, he started feeling lightheaded and concerned he had right-sided chest pain that correlated more with potassium infusion he is receiving in his right arm. The patient has an EKG which is unremarkable and normal vital signs. His pain resolved spontaneously with relaxation and encouragement, and it did not respond to his sublingual nitroglycerin that his nurse gave as a prn.. The patient should follow up with Cardiology because there is LAD disease in addition to left circumflex disease that was intervened upon. He is undergoing medical therapy with aspirin, Brilinta, statin therapy, beta blockers, and other blood pressure agents, but should have a stress test to assess the significance of his LAD lesions. Again, please see the cardiac catheterization report for more details about his coronary anatomy and considerations for the intervention that he received. Return to ED instructions was given to Mr. Chance and his family. I spoke with 2 daughters and his son-in-law as well as multiple other family members who were present at different times throughout the hospitalization. He certainly has a good support system. I told them to bring him back to the emergency room if he has any worrisome chest pain or other symptomatology such as shortness of breath, lightheadedness, loss of consciousness, palpitations, or any other worrisome symptoms. Recommended specialty followup includes Cardiology as well as Hematology/ Oncology. Asked patient NOT TO DRIVE ALONE TO [place] -- his family has volunteered to take him and I asked that they do this. Other data during the hospitalization included a transthoracic echocardiogram done on 12/01/16 and revealed, in summary, a left ventricular chamber with normal size and normal systolic function with normal wall motion and contractility and with a left atrial chamber size that was also normal. The RV chamber size and systolic function were within normal limits, but right ventricular systolic pressure was unable to be measured. There was no significant valvular abnormalities noted, nor was there any significant pericardial effusion and there was mild dilatation of the ascending aorta and [id number] dilatation of the aortic root. With the ascending aorta dimension being 3.6 cm with the normal range listed as 2.1 to 3.4 cm as well as the aortic root diameter at 4.2 cm with the range of normal being 2.1 to 3.5. I should note I spoke with Gila Frey NP, and she welcomes Mr. Chance back for followup CBC on 12/05/16 without an appointment; that she would see him at any time. I will arrange this discharge summary and the cardiac catheterization and other documents to be faxed to her office by Sunday of this week, and I would mention that the patient and his family were discussing a permanent move to [place]. In that case, I would recommend advanced identification of a PCP in [place] and a deliberate transfer of medical documentation before this complicated patient with multiple medical problems finds himself without care. In particular, his methadone regimen, as an example , is something that would need identification for a plan of care. TIME SPENT: Total time taken to discharge Mr. Chance was 80 minutes, greater than half that time spent in the room going over the discharge instructions face -to-face with the patient and his family. CONDITION AT DISCHARGE: Stable. CC: Dr. Valdez; Dr. Eduardo Blevins; Gila Frey NP * [id number]/[facility] #: [id number] [facility]
== END 2016-12-03 16:22 | disposition home or self-care (01) | DRG 249 ==
LOC: ED 12:36 → ICU 14:23 → MEDTELE 12-03 01:34
PROVIDERS: ADMIT Hospitalist; ATTEND Internal Medicine
PROC: 02703EZ Dilation of Coronary Artery, One Artery with Two Intraluminal Devices, Percutaneous Approach (ICD-10-PCS; 2016-12-01)
PROC: 02703ZZ Dilation of Coronary Artery, One Artery, Percutaneous Approach (ICD-10-PCS; 2016-12-01)
PROC: B2111ZZ Fluoroscopy of Multiple Coronary Arteries using Low Osmolar Contrast (ICD-10-PCS; 2016-12-01)
PROC: 4A023N7 Measurement of Cardiac Sampling and Pressure, Left Heart, Percutaneous Approach (ICD-10-PCS; principal; 2016-12-01 15:00)
DX: I21.4 Non-ST elevation (NSTEMI) myocardial infarction (principal); D69.6 Thrombocytopenia, unspecified; K76.6 Portal hypertension; G62.9 Polyneuropathy, unspecified; R16.1 Splenomegaly, not elsewhere classified; I10 Essential (primary) hypertension; E78.5 Hyperlipidemia, unspecified; F19.10 Other psychoactive substance abuse, uncomplicated; J44.9 Chronic obstructive pulmonary disease, unspecified; G89.29 Other chronic pain; M54.9 Dorsalgia, unspecified; Z21 Asymptomatic human immunodeficiency virus [HIV] infection status; Z79.82 Long term (current) use of aspirin; B18.2 Chronic viral hepatitis C; N20.0 Calculus of kidney; I25.10 Atherosclerotic heart disease of native coronary artery without angina pectoris; Z82.49 Family history of ischemic heart disease and other diseases of the circulatory system; F17.200 Nicotine dependence, unspecified, uncomplicated; R00.1 Bradycardia, unspecified; Z88.0 Allergy status to penicillin
CPT/HCPCS: 36415; 71010; 80048; 80053; 80061; 82550; 82553; 83036; 83605; 84484; 85025; 85027; 85060; 85379; 85610; 85730; 93005; 93306; 93454; 99223; 99406; A9270-GY; C1725; C1769; C1876; C1887; J1644; J2250; J3010; J3480

== ENCOUNTER 2019-12-14 00:11 | Inpatient (IN) | payer MEDICARE, MEDICAID ==
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
[2019-12-14] MEDS ORDERED: Ticagrelor* 90 MG TAB PO ONE (00:24)
[2019-12-14] MEDS ORDERED: Heparin for STEMI(*) 5,000 UNITS/ML 1 ML VIAL IV ONE (00:24)
[2019-12-14] MEDS ORDERED: Heparin DRIP 25,000 UNITS(*) 25,000 UNITS/500 ML BAG IV SCH (00:45)
[2019-12-14] MEDS ORDERED: Heparin VIAL(*) 5000 UNITS/ML VIAL (FIVE THOUSAND) IV SCH (01:00)
[2019-12-14 01:03] LABS: Hematocrit 35 % (42-52); Hemoglobin 12.2 g/dL (14.0-18.0); Mean Corpuscular HGB Conc 35 g/dL (31-36); Mean Corpuscular Hemoglobin 32 pg (27-31); Mean Corpuscular Volume 91 fL (80-94); Red Blood Count 3.84 10^6 /uL (4.18-5.48); Red Cell Distribution Width 16 % (10-15); White Blood Count 3.9 10^3/uL (3.5-10.8)
[2019-12-14 01:05] LABS: ALT 12 U/L (7-52); Albumin 4.7 g/dL (3.2-5.2); Albumin/Globulin Ratio 1.2 (1-3); Alkaline Phosphatase 53 U/L (34-104); BUN/Creatinine Ratio 21.6 (8-20); Blood Urea Nitrogen 22 mg/dL (6-24); CO2 Carbon Dioxide 24 mmol/L (22-32); Calcium 9.2 mg/dL (8.6-10.3); Chloride 104 mmol/L (101-111); Creatine Kinase 102 U/L (10-223); EGFR African American 91.8 (>60); EGFR Non-African American 75.8 (>60); Glucose 88 mg/dL (70-100); LDL Cholesterol Direct 71 mg/dL; Sodium 136 mmol/L (135-145); Total Protein 8.7 g/dL (6.4-8.9)
[2019-12-14 01:09] LABS: Activated Partial Thrombo Time 31.6 seconds (26.0-38.0); INR 1.2 (0.82-1.09); Troponin I 0.05 ng/mL (<0.03)
[2019-12-14 01:10] LABS: CKMB ng/mL 2.7 ng/mL (0.6-6.3)
[2019-12-14] MEDS ORDERED: Heparin(*) 1000 UNIT/ML 10 ML VIAL CATH LAB IV ONE (01:15)
[2019-12-14] MEDS ORDERED: VERAPAMIL 2.5 MG/ML 2 ML VIAL ** 5 mg/2 ml ONE (01:15)
[2019-12-14] MEDS ORDERED: Heparin 2 UNITS/ML IVPREMIX* 2,000 ML IV ONE (01:15)
[2019-12-14] MEDS ORDERED: nitroGLYCERIN DRIP* 25,000 MCG/250 ML BTL ONE ×2 (01:16→01:20)
[2019-12-14] MEDS ORDERED: Lidocaine 1% INJ* 10 MG/ML 30 ML SDV ONE (01:16)
[2019-12-14] MEDS ORDERED: nitroGLYCERIN DRIP* 25,000 MCG/250 ML BTL IV ONE (01:19)
[2019-12-14 01:20] LABS: Anion Gap 8 mmol/L (2-11)
[2019-12-14 01:21] LABS: ABS Eosinophils 0.1 10^3/ul (0-0.6); ABS Lymphocytes 1.5 10^3/ul (1.0-4.8); ABS Monocytes 0.2 10^3/ul (0-0.8); ABS Neutrophils 2.1 10^3/ul (1.5-7.7); Eosinophil % 1.8 %; Lymphocyte % 38.3 %; Mean Platelet Volume 10.8 fL (7.4-10.4); Nucleated Red Blood Cells % 0.1; Platelet Count 76 10^3/uL (150-450)
[2019-12-14] MEDS ORDERED: Iohexol 350 (CONTRAST) 200 ML MDV IV ONE (01:21)
[2019-12-14] MEDS ORDERED: fentaNYL* 50 MCG/ML 2 ML VIAL (100 MCG VIAL) ONE (01:42)
[2019-12-14] MEDS ORDERED: Midazolam* 1 MG/ML 5 ML VIAL (5 MG) ONE (01:42)
[2019-12-14 01:59] LABS: Potassium Redraw 3.8 mmol/L (3.5-5.0)
[2019-12-14] MEDS ORDERED: Bivalirudin(*) 250 MG VIAL ONE (02:08)
[2019-12-14] MEDS ORDERED: Nitroglycerin TAB 0.4 MG* 0.4 MG TAB SL PRN (02:58)
[2019-12-14] MEDS: NS 0.9% 1000 ML** 1,000 ML IV SCH ×2 (03:41→10:31)
[2019-12-14] MEDS ORDERED: Metoprolol Tartrate TAB* 25 MG PO SCH (04:00)
[2019-12-14] MEDS ORDERED: oxyCODONE SR TAB(*) 20 MG TAB.SR PO PRN (04:01)
--- NOTE | 2019-12-14 04:10 | ADMNOTE ---
Subjective Interval History: this is my HP 54 yo male with hx of VA s/p stent placement presented with sharp constant left sided chest pain that started a few hours before. He said it was similar to when he had an VA several years ago. Pain relieved with rest. EMS administered aspirin en route. EKG reviewed by cardiology and it was concerning for posterior VA but there were some questions on whether these were just chronic. Pt was taken to the labor custodian. Pt received 1 stent to the LAD for a critical lesion but likely was having unstable angina/NSTEMI. Family History: Unchanged from Admission Social History: Unchanged from Admission Past Medical History: Unchanged from Admission Review of Systems - Measurements Intake and Output: Intake and Output Last 24 Hours 12/11/19 12/12/19 12/13/19 12/14/19 06:59 06:59 06:59 06:59 Weight 155 lb - Review of Systems Constitutional Symptoms: Negative: Weight Gain, Weight Loss, Weakness, Fatigue, Fever, Night Sweats, Unexplained Falls, Other Dermatology: Negative: Normal, Rash, Skin Lesions, Cancer, Skin Lumps, Other HEENT: Negative: Normal, Change in Hearing, Vertigo, Dental Problems, Tinnitus, Sinus Problem, Other Eyes: Negative: Normal, Change in Vision, Double Vision, Eye Pain, Glaucoma, Cataract, Contacts or Glasses, Other Thyroid: Negative: Normal, Goiter, Thyroid Nodule, Cold Intolerance, Heat Intolerance , Sweatiness, Tremor, Frequent Defecation, Constipation, Palpitations, Primary Hypothyroidism, Primary Hyperthyroidism, Weight Loss, Weight Gain, Change in Skin/Hair, Change in Menstruation, Radiation Exposure, Other Pulmonary: Negative: Normal, Cough, Sputum, Hemoptysis, Wheezing, Respiratory Distress, Shortness of Breath, COPD, Asthma, Exercise Intolerance, Home Oxygen, Other Cardiology: Negative: Normal, Chest Pain, Shortness of Breath, Palpitations, Swelling of Ankles, Peripheral Vascular Dis, Edema, Faintness, Syncope, Claudication, Proximal NocturnalDyspnea, Orthopnoea, Other Gastroenterology: Negative: Normal, Abdominal Pain, Nausea, Vomiting, Anorexia, Indigestion, Difficulty Swallowing, Heartburn, Constipation, Diarrhea, Blood in Stools, Change in Bowel Habits, Haematemesis, Melena, Other Genital - Urinary: Negative: Normal, Dysuria, Hematuria, Polyuria, Nocturia, Other Musculoskeletal: Negative: Joint Pain, Joint Stiffness, Arthritis, Osteoporosis, Low Back Pain , Sciatica, Joint Deformities, Kyphoscoliosis, Other Endocrinology: Negative: Normal, Thyroid Problems, Adrenal Problems, Gonadal Problems, Family Hx Endocrine Disorders, Obesity, Diabetes Mellitus, Hyperglycemia, Hx Hypoglycemia, Diabetic Foot Ulcers, Calluses, Hirsutism, Menstrual Abnormalities , Polydipsia, Polyuria, Gonadal Problems, Gynecomastia, Pituitary disease, Other Neurology: Negative: Normal, Headache, Migraines, Change in Vision, Diplopia, Dizziness , Change in Balancing, Change in Coordination, Change in Memory, Change in Speech, Change in Sphincter Function, Change in Walking, Numbness\Paresthesiae, Unexplained Weakness, Hx of Stroke\TIA, Hx of Seizures, Other Objective Active Medications: Amlodipine Besylate (Norvasc Tab*) 5 mg PO DAILY [facility] Aspirin (Aspirin 81 Mg Chew Tab*) 81 mg PO DAILY [facility] Atorvastatin Calcium (Lipitor*) 40 mg PO 1700 [facility] Emtricitabine/Rilpivirine/Tenofovir (Odefsey Tablet) each PO DAILY [facility] Heparin Sodium (Porcine) (Heparin Vial(*)) 0 units IV .PER PROTOCOL [facility] Nitroglycerin/Dextrose (Nitroglycerin Drip*) 25,000 mcg in 250 mls @ 6 mls/hr IV ED ONCE ONE; Protocol Stop: 12/15/19 18:58 Last Admin: 12/14/19 01:24 Dose: 6 mls/hr Sodium Chloride (Ns 0.9% 1000 Ml) 1,000 mls @ 100 mls/hr IV PER RATE [facility] Stop: 12/14/19 11:14 Last Admin: 12/14/19 03:41 Dose: 100 mls/hr Methadone HCl (Dolophine Tab*) 80 mg PO DAILY [facility] Metoprolol Tartrate (Lopressor Tab*) 12.5 mg PO Q8HR [facility] Last Admin: 12/14/19 03:46 Dose: 12.5 mg Nitroglycerin (Nitroglycerin Tab 0.4 Mg*) 0.4 mg SL Q5M PRN PRN Reason: ANGINA Non-Formulary Medication (Oxycodone Hcl [Oxycodone Hcl Er 30 Mg]) 20 mg PO Q8HR PRN PRN Reason: PAIN Ticagrelor (Brilinta*) 90 mg PO BID [facility] Vital Signs - 8 hr 12/14/19 12/14/19 12/14/19 00:13 00:19 00:22 Temperature 98.6 F Pulse Rate 84 75 74 Respiratory 20 17 20 Rate Blood Pressure 152/92 152/92 (mmHg) O2 Sat by Pulse 100 99 Oximetry 12/14/19 12/14/19 12/14/19 00:24 00:26 00:41 Temperature Pulse Rate 74 70 Respiratory 17 17 Rate Blood Pressure 178/101 (mmHg) O2 Sat by Pulse 100 100 100 Oximetry 12/14/19 12/14/19 12/14/19 00:49 00:59 01:00 Temperature Pulse Rate 68 68 67 Respiratory 21 18 13 Rate Blood Pressure 166/100 163/95 (mmHg) O2 Sat by Pulse 100 100 96 Oximetry 12/14/19 12/14/19 12/14/19 01:08 01:19 01:21 Temperature 97.7 F Pulse Rate 68 70 68 Respiratory 17 19 15 Rate Blood Pressure 163/95 196/112 166/117 (mmHg) O2 Sat by Pulse 100 100 100 Oximetry 12/14/19 01:36 Temperature 98.3 F Pulse Rate 98 Respiratory 18 Rate Blood Pressure 166/117 (mmHg) O2 Sat by Pulse 100 Oximetry Oxygen Devices in Use Now: Nasal Cannula Eyes: No Scleral Icterus, PERRLA Ears/Nose/Mouth/Throat: Mucous Membranes Moist Neck: NL Appearance and Movements; NL JVP, Trachea Midline Respiratory: Symmetrical Chest Expansion and Respiratory Effort, Clear to Auscultation, Clear to Percussion, Clear to Palpation Cardiovascular: NL Sounds; No Murmurs; No JVD, No Edema Abdominal: NL Sounds; No Tenderness; No Distention, No Hepatosplenomegaly Lymphatic: No Cervical Adenopathy Extremities: No Edema, No Clubbing, Cyanosis Skin: No Rash or Ulcers Neurological: Alert and Oriented x 3 Result Diagrams: 12/14/19 00:43 12/14/19 01:35 Assess/Plan/Problems-Billing Assessment: - Patient Problems (1) NSTEMI (non-ST elevated myocardial infarction) Current Visit: No Status: Acute Priority: High Code(s): I21.4 - NON-ST ELEVATION (NSTEMI) MYOCARDIAL INFARCTION SNOMED Code(s): 76995939 Comment: from ED to [facility]. Received 1 stent to the LAD DAPT: aspirin and brilinta Nitro gtt no pain at this time BB, statin Echo in am (2) HIV (human immunodeficiency virus infection) Current Visit: No Status: Chronic Priority: High Comment: continue HAART - thrombocytopenia may be related to HAART or HIV. - viral counts reportedly undetectable (3) Thrombocytopenia Current Visit: No Status: Acute Code(s): D69.6 - THROMBOCYTOPENIA, UNSPECIFIED SNOMED Code(s): 273891148 Comment: stable (4) HTN (hypertension) Current Visit: No Status: Acute Code(s): I10 - ESSENTIAL (PRIMARY) HYPERTENSION SNOMED Code(s): 14039249 Comment: norvasc 5 mg (5) Hyperlipidemia Current Visit: No Status: Chronic Priority: High Code(s): E78.5 - HYPERLIPIDEMIA, UNSPECIFIED SNOMED Code(s): 53529275 Comment: Continue statin / crestor (6) Neuropathy Current Visit: No Status: Chronic Priority: Medium Code(s): G62.9 - POLYNEUROPATHY, UNSPECIFIED SNOMED Code(s): 547328411 Comment: - Continue Gabapentin as ordered (7) Polysubstance abuse Current Visit: No Status: Chronic Priority: Medium Code(s): F19.10 - OTHER PSYCHOACTIVE SUBSTANCE ABUSE, UNCOMPLICATED SNOMED Code(s): 565585478 Comment: continue outpatient methadone dosing. oxycodone is still listed as a current med and pt said he takes both? pharmacy to confirm. (8) DVT prophylaxis Current Visit: No Status: Acute Code(s): Z29.9 - ENCOUNTER FOR PROPHYLACTIC MEASURES, UNSPECIFIED SNOMED Code(s): 942669872 (9) Full code status Current Visit: No Status: Acute Code(s): Z78.9 - OTHER SPECIFIED HEALTH STATUS SNOMED Code(s): 662841548
[2019-12-14 06:48] LABS: ABS Eosinophils 0.1 10^3/ul (0-0.6); ABS Lymphocytes 3.7 10^3/ul (1.0-4.8); ABS Monocytes 0.4 10^3/ul (0-0.8); ABS Neutrophils 3.2 10^3/ul (1.5-7.7); Eosinophil % 1.2 %; Hematocrit 33 % (42-52); Hemoglobin 11.4 g/dL (14.0-18.0); Lymphocyte % 49.7 %; Mean Corpuscular HGB Conc 35 g/dL (31-36); Mean Corpuscular Hemoglobin 32 pg (27-31); Mean Corpuscular Volume 92 fL (80-94); Mean Platelet Volume 10.9 fL (7.4-10.4); Platelet Count 78 10^3/uL (150-450); Red Blood Count 3.58 10^6 /uL (4.18-5.48); Red Cell Distribution Width 16 % (10-15); White Blood Count 7.5 10^3/uL (3.5-10.8)
[2019-12-14 06:57] LABS: ALT 8 U/L (7-52); AST 16 U/L (13-39); Albumin 4.2 g/dL (3.2-5.2); Albumin/Globulin Ratio 1.4 (1-3); Alkaline Phosphatase 44 U/L (34-104); Anion Gap 11 mmol/L (2-11); BUN/Creatinine Ratio 23.6 (8-20); Blood Urea Nitrogen 21 mg/dL (6-24); CO2 Carbon Dioxide 18 mmol/L (22-32); Chloride 106 mmol/L (101-111); Cholesterol 100 mg/dL; Creatine Kinase 113 U/L (10-223); EGFR African American 107.4 (>60); EGFR Non-African American 88.7 (>60); Glucose 94 mg/dL (70-100); HDL Cholesterol 33.7 mg/dL; LDL Cholesterol 49 mg/dL; Potassium 3.3 mmol/L (3.5-5.0); Sodium 135 mmol/L (135-145); Total Protein 7.2 g/dL (6.4-8.9); Triglycerides 86 mg/dL
[2019-12-14 07:01] LABS: CKMB ng/mL 7.5 ng/mL (0.6-6.3)
[2019-12-14 07:19] LABS: Troponin I 0.74 ng/mL (<0.03)
[2019-12-14] MEDS: Aspirin 81 mg CHEW TAB* 81 MG TAB.CHEW PO SCH (08:36)
[2019-12-14] MEDS: Methadone TAB* 10 MG PO SCH (08:36)
[2019-12-14] MEDS: Ticagrelor* 90 MG TAB PO SCH ×2 (08:36→20:27)
[2019-12-14] MEDS: amLODIPine TAB* 5 MG PO SCH (08:36)
[2019-12-14] MEDS: Heparin VIAL(*) 5000 UNITS/ML VIAL (FIVE THOUSAND) SUBCUT SCH ×2 (08:37→20:27)
[2019-12-14] MEDS ORDERED: Emtricitabine/Rilpivirine/Teno (Odefsey) 200/25/25 TABLET PO SCH (09:00)
[2019-12-14] MEDS ORDERED: Potassium Chlor TAB* 20 MEQ TAB.ER PO ONE (09:31)
[2019-12-14] MEDS ORDERED: Metoprolol Succinate XL TAB* 25 MG PO ONE (09:40)
--- NOTE | 2019-12-14 11:35 | ECHO ---
*[facility]* [place] [address] Fax #: [phone] Transthoracic Echocardiogram Patient: Ash Chance : 1965 Study Date: 12/14/2019 Age: 54 Gender: M HR: 61 bpm Height: 70 in /177.8 cm BSA: 1.87 m^2 Weight: 154.7 lb /70.3 kg BMI: 22.2 kg/m^2 *[employer]: * Katie Bell *Referring Physician: * Henrry Hernandez MD *Reading Physician: * Herb Rincon MD Indications: Myocardial Infarction (new). History: Acute coronary syndrome. Risk factors: Current tobacco use. Family history is significant for coronary artery disease. Conclusions Summary: - Left ventricle: Wall thickness is mildly increased. Normal left ventricular size. Systolic function is normal. The estimated ejection fraction is 55-60%. Wall motion is normal; there are no regional wall motion abnormalities. - Normal cardiac chamber sizes. - Functionally benign heart valves. - Aorta: The aortic root is moderately dilated. - Since the prior echocardiogram completed 12/01/16, there appears to be little change. Study data: Transthoracic echocardiogram. Procedure: Transthoracic echocardiography was performed. Image quality was good. Complete 2D, spectral Doppler, and color flow Doppler. Location: ICU Patient status: Inpatient. Patient room number: 3. Rhythm: Normal sinus rhythm. Findings Left ventricle: Wall thickness is mildly increased. Normal left ventricular size. Systolic function is normal. The estimated ejection fraction is 55-60%. Wall motion is normal; there are no regional wall motion abnormalities. Left ventricular diastolic function parameters are indeterminate. Right ventricle: The cavity size is normal. Systolic function is normal. Left atrium: The atrium is normal in size. Right atrium: The atrium is normal in size. Mitral valve: The valve is structurally normal. There is trace regurgitation. Aortic valve: The valve is structurally normal. The valve is trileaflet. Cusp separation is normal. Transvalvular velocity is within the normal range. There is no evidence of stenosis. There is no significant regurgitation. Tricuspid valve: The valve is structurally normal. There is trace regurgitation. Pulmonic valve: The valve is structurally normal. There is no evidence of stenosis. There is no significant regurgitation. Aorta: Ascending aorta: The ascending aorta is appears normal. The aortic arch appears normal. The aortic root is moderately dilated. Pericardium: There is no significant pericardial effusion. Pulmonary arteries: Systolic pressure can not be accurately estimated. Systemic veins: Inferior vena cava: The vessel is normal in size. There is (>= 50%) respiratory change in the IVC dimension. Pulmonary veins: The Pulmonary veins appear normal. Measurements Left ventricle Value Ref Aortic valve continued Value Ref DENY, LAX 4.2 cm 4.2 - Mean grad, S 4.0 mm Hg ----- 5.8 Peak grad, S 7.0 mm Hg ----- ESD, LAX 2.9 cm 2.5 - SARAY, VTI 2.34 cm^2 ----- 4.0 SARAY, Vmax 2.53 cm^2 ----- FS, LAX 32 % 25 - 43 PW, ED, LAX (H) 1.2 cm 0.6 - Mitral valve Value Ref 1.0 Peak E 0.59 m/sec ----- E', lat eric, TDI (L) 7.3 cm/sec >=10.0 Peak A 0.53 m/se c ----- E/e', lat eric, TDI 8 -------- Decel time 264 ms - ---- Peak E/A ratio 1.1 ----- LVOT Value Ref Diam, S 1.90 cm -------- Pulmonic valve Value Ref Area 2.8 cm^2 -------- Peak v, S 0.64 m/sec ----- Peak jeanne, S 1.15 m/sec -------- Peak grad, S 2.0 mm Hg ----- Peak grad, S 5 mm Hg -------- Mean grad, S 2 mm Hg -------- Tricuspid valve Value Ref SV 66 ml -------- TR peak v 2.29 m/sec <=2 .8 Peak RV-RA grad, S 21 mm Hg ----- Ventricular septum Value Ref Max TR jeanne 2.29 m/sec ----- IVS, ED (H) 1.4 cm 0.6 - 1.0 Aortic root Value Ref Root diam (H) 4.6 cm <4. 0 Right ventricle Value Ref DENY, LAX 2.7 cm -------- Ascending aorta Value Ref AAo AP diam, S 3.4 cm ----- Left atrium Value Ref ML dim, A4C 4.3 cm -------- Aortic arch Value Ref SI dim, A4C 4.6 cm -------- Arch diam 3.0 cm ----- Vol/bsa, ES, 1-p 25 ml/m^2 12 - 37 A4C Decending aorta Value Ref Vol/bsa, ES, A/L 31 ml/m^2 16 - 34 Giacomo peak jeanne 0.76 m/sec ----- Right atrium Value Ref Inferior vena cava Value Ref SI dim, ES 4.5 cm 3.4 - Diam 1.8 cm ----- 5.3 ML dim, ES, A4C 4.4 cm 2.6 - 4.4 SI dim, ES, A4C 4.5 cm 3.4 - 5.3 Aortic valve Value Ref Peak v, S 1.29 m/sec -------- VTI, S 28.2 cm -------- Legend: (L) and (H) sandy values outside specified reference range. Prepared and electronically signed by Herb Rincon MD 12/14/2019 11:35
--- NOTE | 2019-12-14 12:36 | CONS ---
CC: [facility] ; Dr. Jose L Valdez, [facility] INTERVENTIONAL CARDIOLOGY CONSULT NOTE: DATE OF CONSULT: 12/14/19 CHIEF COMPLAINT: Patient with history of prior stents to the circumflex, now with severe episode of chest discomfort, abnormal EKG, rule out acute coronary syndrome. HISTORY OF PRESENT ILLNESS: The patient is a 54-year-old gentleman known to me from his prior cardiac history back in November 2016. He now presents stating that over the past couple of weeks with exertion, he has had significant chest discomfort. He would have shortness of breath with it as well. On the day of admission, he had just eaten a hamburger and developed the onset of significant symptoms after he had walked. He called his son when they started at 11 p.m. His son called the paramedics. Paramedics arrived and performed an EKG. The EKG by the paramedics had revealed downsloping ST segments in the mid anterior leads. They did not feel this was a STEMI and had not considered a possibility of perhaps a posterior ST segment elevation inferior wall myocardial infarction. Interestingly, the patient had taken an aspirin, and by the time the ambulance got there, his symptoms were almost completely gone, and en route , his symptoms went away. In the emergency room, he was pain free. The emergency room physician repeated the EKG and saw similar changes. When I saw the patient, he was without significant chest discomfort. He had had one more EKG of those showing the ST segment abnormalities. I then compared this to November 2016 when we had placed 2 stents to his circumflex artery. Compared the today's EKG with Dr. Valdez's from 2018, one year after we had performed the intervention on Ash, these EKG findings are new as he had no significant ST segment changes on that EKG. Given the findings of new EKG changes and progressive unstable angina to the point of having it after sitting and eating a hamburger, the decision was made to proceed to the cardiovascular laboratory. The risks and benefits were explained. He understood them and wished to proceed. In the emergency room, he was given 180 mg of Brilinta. He was given heparin weight adjusted bolus and had already received aspirin. His past cardiac history dates back to 2016 as mentioned in November when he presented with a non-STEMI, and at that point, he had a platelet count in the 40 ,000. A discussion was made with Hematology/Oncology, Dr. Eduardo Blevins, who asked to us place bare-metal stents because he did not known what direction the platelet count would potentially go. As such, he underwent cardiac catheterization and was noted to have significant disease of the circumflex artery with the greatest narrowings in the distal circumflex and the mid circumflex and subsequently had a 2.75 x 32 mm long bare-metal stent placed in the distal to mid circumflex with a placement of a 3.0 x 8 mm long in the proximal circumflex. At that point, he had also had disease with an LAD lesion that looked to be as much as 70% to 75% and was to be assessed as an outpatient. Interestingly according to the patient, he had had a chemical nuclear stress test within the past 6 months and was not told of any major issues that would need repeat heart catheterization. At home, he had been on aspirin in addition to Crestor as well as metoprolol, all of the doses of which we do not know and he does not remember at this time. PAST MEDICAL HISTORY: 1. CAD as described above. 2. Hypertension. 3. Hyperlipidemia. 4. Hepatitis C for which he has been treated and states he has been cured. 5. HIV for which he says his titers are extremely low. 6. Splenomegaly. 7. He has a remote history of drug usage. 8. He has a history of chronic obstructive lung disease. 9. Chronic pain syndrome. 10. Neuropathy. PAST SURGICAL HISTORY: History of a pneumothorax. FAMILY HISTORY: Father had an AK at 42. SOCIAL HISTORY: He has just moved from [facility] to [facility] 2 weeks ago. He still smokes approximately 2 to 3 cigarettes a day. REVIEW OF SYSTEMS: Pertinent for proceeding to the cardiovascular laboratory for acute intervention. He denies any stroke or TIA. He denies any recent history of hematochezia, hematuria, or hematemesis. He denies any history of significant renal disease and he has no contrast allergy. PHYSICAL EXAMINATION: When I saw him in the emergency room revealed the patient mildly anxious with no acute chest discomfort. Blood pressure 153/103, pulse 70, respirations 16. Neck is supple. No increased JVP. Lungs are clear with no active rales, rhonchi, or wheezes. Heart reveals regular rate and rhythm without significant murmur. Abdomen is soft, nontender, question of an increased spleen is raised. Extremities are without significant edema. Pulses are intact. Neuro: The patient is alert and oriented with normal mentation. Musculoskeletal: The patient moves all extremities appropriately. Psychological: The patient with appropriate affect. DIAGNOSTIC STUDIES/LAB DATA: Laboratory results are pending at the time of the initial assessment in the emergency room, but slowly started coming back with a troponin of 0.05, hemoglobin and hematocrit of 12.2 and 35, and platelet count now 76,000 (of note, he was a 153,000 some 2 to 3 weeks ago), white count of 3900, BUN and creatinine of 22 and 1.0. EKG #1 in the emergency room revealed sinus rhythm, heart rate [address] segment downsloping and T-wave inversion in V2 and V3 and aVL. Second EKG showed worsening of the ST segment changes with V2 through V5 and aVL. The third showed no change from the prior one. OVERALL ASSESSMENT: Ash presents now with acute coronary syndrome with most likely a [id number]-[id number] myocardial infarction, although theoretically could not rule out posterior involvement. Given the fact that if it was posterior the STs would still be elevated, I would expect that he is to be having ongoing symptoms with a ST-segment elevation myocardial infarction. He has been appropriately treated with aspirin, Brilinta, and heparin and we will go emergently to the cardiovascular laboratory with further management pending results. He understands the risks and benefits and wished to proceed. We will most likely have the patient admitted by the hospitalist service given the fact that he has multiple medical issues with history of hepatitis, with his human immunodeficiency virus, and in addition, his chronic obstructive lung disease and also anxiety problems. [id number]/[facility] #: [id number] RAFI
[2019-12-14] MEDS: Lisinopril TAB* 5 MG PO SCH (13:03)
--- NOTE | 2019-12-14 13:21 | PN ---
Subjective Date of Service: 12/14/19 Interval History: Pt is feeling well. He is a little anxious currently. He typically takes clonazepam twice daily at home and has not had any today. He denies any CP or SOB. No wrist discomfort. Objective Active Medications: Amlodipine Besylate (Norvasc Tab*) 5 mg PO DAILY [facility] Last Admin: 12/14/19 08:36 Dose: 5 mg Aspirin (Aspirin 81 Mg Chew Tab*) 81 mg PO DAILY [facility] Last Admin: 12/14/19 08:36 Dose: 81 mg Atorvastatin Calcium (Lipitor*) 40 mg PO 1700 [facility] Clonazepam (Klonopin Tab(*)) 2 mg PO BID PRN PRN Reason: ANXIETY Emtricitabine/Rilpivirine/Tenofovir (Odefsey Tablet) 1 each PO DAILY [facility] Heparin Sodium (Porcine) (Heparin Vial(*)) 5,000 units SUBCUT Q12HR [facility] Last Admin: 12/14/19 08:37 Dose: 5,000 units Lisinopril (Prinivil Tab*) 5 mg PO DAILY [facility] Last Admin: 12/14/19 13:03 Dose: 5 mg Methadone HCl (Dolophine Tab*) 80 mg PO DAILY [facility] Last Admin: 12/14/19 08:36 Dose: 80 mg Metoprolol Succinate (Toprol Xl Tab*) 25 mg PO DAILY [facility] Nitroglycerin (Nitroglycerin Tab 0.4 Mg*) 0.4 mg SL Q5M PRN PRN Reason: ANGINA Oxycodone HCl (Oxycontin(*)) 20 mg PO Q8HR PRN PRN Reason: PAIN Ticagrelor (Brilinta*) 90 mg PO BID [facility] Last Admin: 12/14/19 08:36 Dose: 90 mg Vital Signs - 8 hr 12/14/19 12/14/19 12/14/19 05:30 05:45 06:00 Temperature Pulse Rate 55 56 55 Respiratory 14 19 17 Rate Blood Pressure 135/70 123/78 119/75 (mmHg) O2 Sat by Pulse 97 98 98 Oximetry 12/14/19 12/14/19 12/14/19 06:17 06:30 06:45 Temperature Pulse Rate 77 59 59 Respiratory 24 14 12 Rate Blood Pressure 146/88 138/73 145/74 (mmHg) O2 Sat by Pulse 98 97 100 Oximetry 12/14/19 12/14/19 12/14/19 07:00 07:15 07:31 Temperature Pulse Rate 62 58 64 Respiratory 18 15 Rate Blood Pressure 132/80 132/84 144/89 (mmHg) O2 Sat by Pulse 99 99 99 Oximetry 12/14/19 12/14/19 12/14/19 07:45 08:00 08:15 Temperature 97.5 F Pulse Rate 59 62 58 Respiratory 17 15 18 Rate Blood Pressure 144/83 153/85 142/86 (mmHg) O2 Sat by Pulse 98 98 98 Oximetry 12/14/19 12/14/19 12/14/19 08:30 08:36 08:45 Temperature Pulse Rate 57 58 Respiratory 19 14 16 Rate Blood Pressure 143/80 153/87 (mmHg) O2 Sat by Pulse 99 98 Oximetry 12/14/19 12/14/19 12/14/19 09:00 09:02 09:14 Temperature Pulse Rate 63 64 63 Respiratory 16 19 14 Rate Blood Pressure 160/90 (mmHg) O2 Sat by Pulse 100 99 98 Oximetry 12/14/19 12/14/19 12/14/19 09:30 10:00 10:01 Temperature Pulse Rate 60 67 70 Respiratory 13 21 17 Rate Blood Pressure 155/94 (mmHg) O2 Sat by Pulse 98 98 97 Oximetry 12/14/19 12/14/19 10:06 10:31 Temperature Pulse Rate 69 63 Respiratory 12 14 Rate Blood Pressure 144/100 156/77 (mmHg) O2 Sat by Pulse 98 98 Oximetry Oxygen Devices in Use Now: None Appearance: Middle aged thin male sitting up in bed, NAD Eyes: No Scleral Icterus Ears/Nose/Mouth/Throat: Mucous Membranes Moist Respiratory: Symmetrical Chest Expansion and Respiratory Effort, Clear to Auscultation Cardiovascular: NL Sounds; No Murmurs; No JVD, RRR, No Edema, - - R wrist without hematoma Abdominal: NL Sounds; No Tenderness; No Distention Extremities: No Clubbing, Cyanosis Skin: No Nodules or Sclerosis Neurological: Alert and Oriented x 3 Result Diagrams: 12/14/19 06:27 12/14/19 06:27 Microbiology and Other Data: Microbiology 12/14/19 03:29 Nasal Screen MRSA (PCR) - Final Nasal Mrsa Not Detected Assess/Plan/Problems-Billing Mr Chance is a 54 yo M who has a h/o HIV, CAD, HTN, HLD, thrombocytopenia and COPD who presented to the ER with c/o chest pain and was found to have EKG changes with positive troponin and was taken emergently to the catheterization lab where he was found to have a 90% mid LAD stenosis that was successfully stented with a JOSÉ. - Patient Problems (1) NSTEMI (non-ST elevated myocardial infarction) Current Visit: Yes Status: Acute Code(s): I21.4 - NON-ST ELEVATION (NSTEMI) MYOCARDIAL INFARCTION SNOMED Code(s): 54301087 Comment: Pt had an LAD JOSÉ placed. Continue ASA and brilinta. He is CP free. Continue metoprolol, lisinopril, lipitor. Echo shows normal EF and no wall motion abnormalities. Transfer to the floor. (2) HTN (hypertension) Current Visit: Yes Status: Acute Code(s): I10 - ESSENTIAL (PRIMARY) HYPERTENSION SNOMED Code(s): 88873809 Comment: Pt to continue on amlodipine 5mg daily, lisinopril 5mg daily and metoprolol 25mg daily. Monitor and adjust meds as needed. Dr. Hernandez has recommended not going on doxazosin if he needs further control. (3) Thrombocytopenia Current Visit: Yes Status: Acute Code(s): D69.6 - THROMBOCYTOPENIA, UNSPECIFIED SNOMED Code(s): 469936358 Comment: ? secondary to HAART/HIV/splenomegaly. Plt count has been relatively stable. He is now dual antiplatelet-will need to watch very closely. (4) HIV (human immunodeficiency virus infection) Current Visit: Yes Status: Chronic Comment: Pt's HAART is on hold as the Odefsey is nonformulary and he will not receive here. Hold both meds because of that. (5) Hyperlipidemia Current Visit: Yes Status: Chronic Code(s): E78.5 - HYPERLIPIDEMIA, UNSPECIFIED SNOMED Code(s): 50507617 Comment: Continue lipitor 40mg daily. (6) Polysubstance abuse Current Visit: Yes Status: Chronic Code(s): F19.10 - OTHER PSYCHOACTIVE SUBSTANCE ABUSE, UNCOMPLICATED SNOMED Code(s): 759964750 Comment: Pt is unclear on his medication list but believes he takes both methadone and oxycodone. Will continue methadone 80mg daily (reportedly his home dose but this could not be confirmed with his outpatient pharmacy). (7) Hepatitis C Current Visit: Yes Status: Chronic Comment: Pt was treated in the past. (8) DVT prophylaxis Current Visit: Yes Status: Acute Code(s): Z29.9 - ENCOUNTER FOR PROPHYLACTIC MEASURES, UNSPECIFIED SNOMED Code(s): 836835355 Comment: SQ heparin (9) Full code status Current Visit: Yes Status: Acute Code(s): Z78.9 - OTHER SPECIFIED HEALTH STATUS SNOMED Code(s): 068998949
--- NOTE | 2019-12-14 13:26 | CATH ---
CC: [facility]; Dr. Jose L Valdez, [facility] CARDIAC CATHETERIZATION AND INTERVENTIONAL REPORT: DATE OF PROCEDURE: 12/14/19 INDICATION FOR THE PROCEDURE: The patient presents with acute coronary syndrome , non-ST elevation myocardial infarction, assessed for progression of coronary artery disease. PROCEDURE: Coronary arteriography, left heart catheterization, left ventriculography, balloon angioplasty and stenting of mid LAD with placement of a 2.75 x 20 mm long Synergy drug-eluting stent, post dilated proximally to 3.2 mm. CONSENT: The patient was interviewed and examined in the emergency room where the risks and benefits were explained. He understood them and wished to proceed. APPROACH UTILIZED: The right radial artery was assessed by ultrasound and found to be of a good enough size to utilize. As such, this was the approach taken. PRE-CARDIAC CATHETERIZATION LABORATORY RESULTS: Initially not present, but during the case, hemoglobin and hematocrit came back at 12.2 and 35 with a platelet count of 76,000, BUN and creatinine of 22 and 1.0, sodium 136, potassium 3.8, chloride 104, bicarb 24. Troponin 0.05. INR 1.2. EQUIPMENT UTILIZED: 1. Right radial artery sheath with a 6-[place] Glidesheath Slender. 2. Diagnostic coronary catheter was a 5-[place] Irish TIG4 catheter. 3. Diagnostic guidewire was a 260 length Jones curved guidewire. 4. Left heart catheterization catheter was a 5-[place] Irish PIG short radial catheter. 5. The guiding catheter utilized was a 6-Northern Irish VL3.5 curved catheter. 6. The interventional wire was a 190 cm length BMW wire. 7. The balloon angioplasty catheter utilized was a 2.5 x 15 mm long Emerge balloon. 8. The stent utilized was a 2.75 x 20 mm long Synergy drug-eluting stent. 9. The post stent deployment balloon angioplasty catheter was a 3.0 x 12 mm long NC Emerge balloon. 10. The closure device utilized was a regular length Vasc Band. MEDICATIONS GIVEN: The patient had already received heparin in the emergency room per guideline protocol and in the cath lab tech, his ACT was checked and found to be subtherapeutic x2 despite additional heparin bolus, and as such, Angiomax bolus and Angiomax drip was started and heparin drip was stopped. The patient also received a radial artery cocktail including 300 mcg of nitroglycerin and 3 mg of verapamil. 1% Xylocaine was utilized for local anesthesia and 1 mg of Versed was given intravenously for sedation. DESCRIPTION OF PROCEDURE: The patient was brought to the cardiovascular laboratory where a formal time-out was performed. He was prepped and draped in sterile fashion, and under ultrasound guidance, the right radial artery was cannulated and the sheath was placed. Coronary arteriography was performed followed by a left heart catheterization and left ventriculography where the patient received a total of 24 cc of Omnipaque dye at a rate of 12 cc per second. Following this, the decision was made to intervene into the mid left anterior descending artery. The ACT had been checked initially and found to be low, with additional heparin bolus given still in the low range, and as such, the decision was made to bolus with Angiomax and start Angiomax drip. The heparin drip was stopped. Of note at that period of time, I also spoke directly with Dr. Eduardo Blevins regarding what type of stent to utilize. The platelet count was 76,000. We had a lengthy discussion regarding the risks of restenosis on non-drug eluting stent as well as the potential for platelet count dropping. Of note, the patient on his last stent intervention despite having bare-metal stent actually tolerated a year of Brilinta in addition to the baby aspirin before switching over to just the baby aspirin. After the discussion, Dr. Eduardo Blevins felt the risk would be higher for cardiac problems than the risk of the bleeding issues, and as such, the decision was made to place a drug-eluting stent. Guiding views were obtained. The wire was passed down the LAD and balloon angioplasty was performed followed by deployment of the stent with postdeployment balloon inflations to high pressure to obtain 3.2 mm diameter. At the end of the case, the catheter was assessed with a balloon back in the guide catheter. At the end of the case, the catheter and sheath were removed and hemostasis was obtained with a Vasc band. The patient tolerated the procedure well. The total contrast used was 150 cc of Omnipaque dye. The radiation exposure included 11.8 minutes of fluoro time. The air kerma radiation was 1824 milligray. The DAP radiation was 9957 microgray per meter squared. RESULTS: HEMODYNAMIC DATA: Left heart catheterization revealed central aortic pressure of 130/60 with a mean of 92, left ventricular pressure of 133 over left ventricular end- diastolic pressure of 10. LEFT VENTRICULOGRAPHY: Performed in the RICE projection revealed moderate hypokinesis of the mid to distal anterior wall with preservation of the inferior wall proximal anterior wall. Of note, there was mild hypokinesis to the very distal apical region, although there was motion to the inferior apical region. CORONARY ARTERIOGRAPHY: A. Left coronary artery: 1. Left main - there were mild luminal irregularities in the proximal portion of the left main with a trivial narrowing of 5% to 10%. 2. The left anterior descending artery - the left anterior descending artery had mild luminal irregularities in the proximal portion with an area of 20% narrowing prior to the first diagonal branch. Just prior to the first septal product development ecologist but after the first diagonal branch, there was an ulcerated high-grade stenosis of approximately 90%. Past this point, there were mild luminal irregularities to the LAD with narrowings as much as 35% to 40%, but no critical stenosis. The distal vessel almost appeared to have a cutoff to it with perhaps a thrombus present in a small caliber region. The diagonal branches did not appear to have significant narrowings. 3. Circumflex artery - a nondominant vessel supplying a thin first obtuse marginal branch followed by a moderate sized mid obtuse marginal branch. Past this point was the area of prior stent placement across the span of the third and fourth obtuse marginal branch. The proximal portion of the circumflex had a mild 25% to 30% narrowing. The second obtuse marginal branch had an area of 35% narrowing. The fourth obtuse marginal branch which was within the stented area was a smaller caliber vessel, but still of a moderate length, there was an ostial narrowing of 70%. The circumflex continued to supply a smaller caliber fifth and sixth obtuse marginal branching and ending in a low lying posterior left ventricular branches. B. Right coronary artery - a dominant vessel supplying a first and second acute marginal branch, the second of which had JOSUE-1 to 2 flow with a critical ostial narrowing of 95% with a > 90 degree angle off the main body of the RCA.. The caliber of the vessel was difficult at best to assess. The mid portion of the right coronary artery had diffuse disease with narrowing as much as 75%. The artery then gave off a long acute marginal branch just as the right coronary artery turned on to the inferior surface that supplied the mid to distal inferior septal area that extended to the apical region and on to the distal anterior wall. The continuation of the right coronary artery supplied a shorter proximal posterior descending artery supplying the proximal inferior wall. INTERVENTION INTO THE MID LEFT ANTERIOR DESCENDING ARTERY: Successful reduction of critical 90% stenosis in mid LAD with balloon angioplasty and placement of a 2.75 x 20 mm long Synergy drug-eluting stent, postdilated proximally to 3.2 mm with JOSUE 3 flow and no dissection seen and 0% residual stenosis. OVERALL ASSESSMENT: Successful intervention into mid LAD with ulcerated lesion, most likely representing primary culprit vessel. Of note, the other possibility could be the acute marginal branch of the right coronary artery; however, this is a small caliber vessel as best it can be viewed and a difficult takeoff and the true size cannot be assessed, and at this point in time, I would clearly not intervene in that this patient is asymptomatic with that being present. The patient does have residual stenosis to deal with within the right coronary artery system, which could be problematic to intervene on given the fact that there is an acute marginal branch that may shut down completely by stenting across it, which currently has JOSUE-1 to 2 flow. Medical management will be pursued with dual-antiplatelet therapy aggressive, antihyperlipidemic medications (of note, his LDL appears to be currently in excellent control, but we will still increase ultimately his Crestor to 20 mg a day since he is making ongoing blockages). He will now be establishing care back in [place], and as such, we will send this report to Dr. Jose L Valdez as well, who no doubt will be following up with the patient after discharge. The hospitalist will also be managing all of his other ongoing medical issues and hopefully will be sending up for primary care followup in the community. [id number]/[facility] #: [id number]
[2019-12-14] MEDS: clonazePAM TAB(*) 1 MG PO PRN (14:07)
[2019-12-14 14:48] LABS: Creatine Kinase 197 U/L (10-223)
[2019-12-14 14:53] LABS: CKMB ng/mL 9.4 ng/mL (0.6-6.3)
[2019-12-14 14:54] LABS: Troponin I 0.61 ng/mL (<0.03)
[2019-12-14] MEDS: Atorvastatin* 40 MG TAB PO SCH (17:59)
[2019-12-15] MEDS: Methadone TAB* 10 MG PO SCH (09:16)
[2019-12-15] MEDS: Heparin VIAL(*) 5000 UNITS/ML VIAL (FIVE THOUSAND) SUBCUT SCH ×2 (09:17→22:26)
[2019-12-15] MEDS: amLODIPine TAB* 5 MG PO SCH (09:17)
[2019-12-15] MEDS: Lisinopril TAB* 5 MG PO SCH (09:17)
[2019-12-15] MEDS: Ticagrelor* 90 MG TAB PO SCH ×2 (09:17→22:27)
[2019-12-15] MEDS: Metoprolol Succinate XL TAB* 25 MG PO SCH (09:17)
[2019-12-15] MEDS: Aspirin 81 mg CHEW TAB* 81 MG TAB.CHEW PO SCH (09:17)
--- NOTE | 2019-12-15 10:22 | PN ---
<GiselleKortney - Last Filed: 12/15/19 10:48> Subjective Date of Service: 12/15/19 - NSTEMI s/p PTCA/JOSÉ mid LAD 12/14/2019 Interval History: No events last night, patient states he has not had recurrent chest pain since yesterday. He ambulated halls yesterday evening with no difficulty. Denies dizziness, shortness of breath or lightheadedness. States his medications including his antivirals are to be sent via fedex overnight. Medications Active Medications: Amlodipine Besylate (Norvasc Tab*) 5 mg PO DAILY [facility] Last Admin: 12/15/19 09:17 Dose: 5 mg Aspirin (Aspirin 81 Mg Chew Tab*) 81 mg PO DAILY [facility] Last Admin: 12/15/19 09:17 Dose: 81 mg Atorvastatin Calcium (Lipitor*) 40 mg PO 1700 [facility] Last Admin: 12/14/19 17:59 Dose: 40 mg Clonazepam (Klonopin Tab(*)) 2 mg PO BID PRN PRN Reason: ANXIETY Last Admin: 12/14/19 14:07 Dose: 2 mg Heparin Sodium (Porcine) (Heparin Vial(*)) 5,000 units SUBCUT Q12HR [facility] Last Admin: 12/15/19 09:17 Dose: 5,000 units Lisinopril (Prinivil Tab*) 5 mg PO DAILY [facility] Last Admin: 12/15/19 09:17 Dose: 5 mg Methadone HCl (Dolophine Tab*) 80 mg PO DAILY [facility] Last Admin: 12/15/19 09:16 Dose: 80 mg Metoprolol Succinate (Toprol Xl Tab*) 25 mg PO DAILY [facility] Last Admin: 12/15/19 09:17 Dose: 25 mg Nitroglycerin (Nitroglycerin Tab 0.4 Mg*) 0.4 mg SL Q5M PRN PRN Reason: ANGINA Ticagrelor (Brilinta*) 90 mg PO BID [facility] Last Admin: 12/15/19 09:17 Dose: 90 mg Objective Vital Signs: Temp Pulse Resp BP Pulse Ox 97.8 F 51 16 119/67 100 12/15/19 07:15 12/15/19 07:15 12/15/19 09:16 12/15/19 07:15 12/15/19 07:15 Oxygen Devices in Use Now: None Appearance: Frail malnourished appearing 54 year old, pleasant and cooperative in NAD. Ears/Nose/Mouth/Throat: NL Teeth, Lips, Gums, Mucous Membranes Moist Neck: NL Appearance and Movements; NL JVP, Trachea Midline Respiratory: Symmetrical Chest Expansion and Respiratory Effort, Clear to Auscultation Cardiovascular: NL Sounds; No Murmurs; No JVD, RRR, No Edema Abdominal: NL Sounds; No Tenderness; No Distention Extremities: No Edema, - - right radial access site non tender to palpation, 3+ radial pulse palpated. no hematoma. Skin: No Rash or Ulcers, - Neurological: Alert and Oriented x 3 Lines/Tubes/Other Access: Clean, Dry and Intact Peripheral IV Laboratory Results: 12/14/19 06:27 12/14/19 06:27 INR (Anticoag Therapy) 1.20 (0.82-1.09) H 12/14/19 00:43 APTT 31.6 seconds (26.0-38.0) 12/14/19 00:43 Total Bilirubin 0.50 mg/dL (0.2-1.0) 12/14/19 06:27 AST 16 U/L (13-39) 12/14/19 06:27 ALT 8 U/L (7-52) 12/14/19 06:27 Alkaline Phosphatase 44 U/L (34-104) 12/14/19 06:27 CK-MB (CK-2) 9.4 ng/mL (0.6-6.3) H 12/14/19 14:20 Total Protein 7.2 g/dL (6.4-8.9) 12/14/19 06:27 Albumin 4.2 g/dL (3.2-5.2) 12/14/19 06:27 Globulin 3.0 g/dL (2-4) 12/14/19 06:27 Albumin/Globulin Ratio 1.4 (1-3) 12/14/19 06:27 Triglycerides 86 mg/dL 12/14/19 06:27 Cholesterol 100 mg/dL 12/14/19 06:27 LDL Cholesterol 49 mg/dL 12/14/19 06:27 HDL Cholesterol 33.7 mg/dL 12/14/19 06:27 12/14/19 12/14/19 12/14/19 00:43 06:27 14:20 Troponin I 0.05 H* 0.74 H* 0.61 H* Laboratory Results - last 24 hr 12/14/19 14:20 Total Creatine Kinase 197 CK-MB (CK-2) 9.4 H Troponin I 0.61 H* Laboratory Results - last 24 hr 12/14/19 14:20 Total Creatine Kinase 197 CK-MB (CK-2) 9.4 H Troponin I 0.61 H* Diagnostic Imaging: Cardiac Catheterization Report Patient: ASH ROQUE /Age: 08 1965 54 Medical Record#: [id number] Admission Date: 12/14/19 Provider: Henrry Hernandez MD CC: [facility]; Dr. Jose L Valdez, [facility] CARDIAC CATHETERIZATION AND INTERVENTIONAL REPORT: DATE OF PROCEDURE: 12/14/19 INDICATION FOR THE PROCEDURE: The patient presents with acute coronary syndrome , non-ST elevation myocardial infarction, assessed for progression of coronary artery disease. PROCEDURE: Coronary arteriography, left heart catheterization, left ventriculography, balloon angioplasty and stenting of mid LAD with placement of a 2.75 x 20 mm long Synergy drug-eluting stent, post dilated proximally to 3.2 mm. CONSENT: The patient was interviewed and examined in the emergency room where the risks and benefits were explained. He understood them and wished to proceed. APPROACH UTILIZED: The right radial artery was assessed by ultrasound and found to be of a good enough size to utilize. As such, this was the approach taken. PRE-CARDIAC CATHETERIZATION LABORATORY RESULTS: Initially not present, but during the case, hemoglobin and hematocrit came back at 12.2 and 35 with a platelet count of 76, 000, BUN and creatinine of 22 and 1.0, sodium 136, potassium 3.8, chloride 104, bicarb 24. Troponin 0.05. INR 1.2. EQUIPMENT UTILIZED: 1. Right radial artery sheath with a 6-[place] Glidesheath Slender. 2. Diagnostic coronary catheter was a 5-[place] TIG4 catheter. 3. Diagnostic guidewire was a 260 length Jones curved guidewire. 4. Left heart catheterization catheter was a 5-[place] PIG short radial catheter. 5. The guiding catheter utilized was a 6-[place] VL3.5 curved catheter. 6. The interventional wire was a 190 cm length BMW wire. 7. The balloon angioplasty catheter utilized was a 2.5 x 15 mm long Emerge balloon. 8. The stent utilized was a 2.75 x 20 mm long Synergy drug-eluting stent. 9. The post stent deployment balloon angioplasty catheter was a 3.0 x 12 mm long NC Emerge balloon. 10. The closure device utilized was a regular length Vasc Band. MEDICATIONS GIVEN: The patient had already received heparin in the emergency room per guideline protocol and in the laboratory scientist, his ACT was checked and found to be subtherapeutic x2 despite additional heparin bolus, and as such, Angiomax bolus and Angiomax drip was started and heparin drip was stopped. The patient also received a radial artery cocktail including 300 mcg of nitroglycerin and 3 mg of verapamil. 1% Xylocaine was utilized for local anesthesia and 1 mg of Versed was given intravenously for sedation. This report is only to be considered final once signed by the Provider(s) as displayed in the "<Electronically Signed by >" field (s). Absence of a signature indicates the report is in a draft status and still needs to be finalized. In the event this document was created by someone other than the signing Provider, the individual initiating the document will be listed in the "Entered by:" or "Dictated by:" real. 1 of 3 *[facility]* [place] [address] Fax #: [phone] Transthoracic Echocardiogram Patient: Ash Roque : 1965 Study Date: 12/14/2019 Age: 54 Gender: M HR: 61 bpm Height: 70 in /177.8 cm BSA: 1.87 m^2 Weight: 154.7 lb /70.3 kg BMI: 22.2 kg/m^2 *Patient Support Assistant: * Katie Bell *Referring Physician: * Henrry Hernandez MD *Reading Physician: * Herb Rincon MD Indications: Myocardial Infarction (new). History: Acute coronary syndrome. Risk factors: Current tobacco use. Family history is significant for coronary artery disease. Conclusions Summary: - Left ventricle: Wall thickness is mildly increased. Normal left ventricular size. Systolic function is normal. The estimated ejection fraction is 55-60%. Wall motion is normal; there are no regional wall motion abnormalities. - Normal cardiac chamber sizes. - Functionally benign heart valves. - Aorta: The aortic root is moderately dilated. - Since the prior echocardiogram completed 12/01/16, there appears to be little change. Study data: Transthoracic echocardiogram. Procedure: Transthoracic echocardiography was performed. Image quality was good. Complete 2D, spectral Doppler, and color flow Doppler. Location: ICU Patient status: Inpatient. Patient room number: 3. This report is only to be considered final once signed by the Provider(s) as displayed in the "<Electronically Signed by >" field (s). Absence of a signature indicates the report is in a draft status and still needs to be finalized. In the event this document was created by someone other than the signing Provider, the individual initiating the document will be listed in the "Entered by:" or "Dictated by:" real. EKG Data: 12/15/2019; Ectopic atrial rhythm rate 53. 1mm ST depression in V2-V4 with associated TWI inversion. Telemetry 12/15/2019; sinus rate 50-60 with 5 beat count of NSVT. Assessment/Plan #1 NSTEMI; Troponin peaked at .74 on 12/14/2019. He is status post PTCA/JOSÉ to mid LAD with known residual mid RCA 75% lesion and 2nd acute marginal branch that had 95% stenosis. LVEF on 12/14/2019 echo was 55-60%. He is now on ASA 81/ day in combination with Brilinta 90 BID, Toprol 25mg/day and Lipitor 40mg/day. will update HgbA1c. Direct LDL was 71. He denies recurrent c/o chest pain. ECG today was reviewed he has 1mm ST depression with associated TWI in V2-V4 consistent with recent infarct. Right radial access site is non tender, 3+ radial pulse no hematoma. Will continue medical therapy. Patient can follow up outpatient for evaluation of residual disease. #2 h/o HTN; currently normotensive on current therapy #3 h/o HLD; direct LDL 71 on statin therapy. #4 h/o CAD with prior Lcx stenting. He is s/p PTCA/JOSÉ to mid LAD. On DAPT in addition to Toprol and Lipitor therapy. #5 Disposition pending course; will follow. Patient has not received antivirals since admission ( h/o HIV) he informed me that they are being sent via FedEx overnight. Social work involved to establish follow up care given patient is relocating to this area. Attending: Elio Dinh <Elio Dinh - Last Filed: 12/15/19 14:26> Medications Active Medications: Amlodipine Besylate (Norvasc Tab*) 5 mg PO DAILY [facility] Last Admin: 12/15/19 09:17 Dose: 5 mg Aspirin (Aspirin 81 Mg Chew Tab*) 81 mg PO DAILY [facility] Last Admin: 12/15/19 09:17 Dose: 81 mg Atorvastatin Calcium (Lipitor*) 40 mg PO 1700 [facility] Last Admin: 12/14/19 17:59 Dose: 40 mg Clonazepam (Klonopin Tab(*)) 2 mg PO BID PRN PRN Reason: ANXIETY Last Admin: 12/15/19 11:27 Dose: 2 mg Heparin Sodium (Porcine) (Heparin Vial(*)) 5,000 units SUBCUT Q12HR [facility] Last Admin: 12/15/19 09:17 Dose: 5,000 units Lisinopril (Prinivil Tab*) 5 mg PO DAILY [facility] Last Admin: 12/15/19 09:17 Dose: 5 mg Methadone HCl (Dolophine Tab*) 80 mg PO DAILY [facility] Last Admin: 12/15/19 09:16 Dose: 80 mg Metoprolol Succinate (Toprol Xl Tab*) 25 mg PO DAILY [facility] Last Admin: 12/15/19 09:17 Dose: 25 mg Nitroglycerin (Nitroglycerin Tab 0.4 Mg*) 0.4 mg SL Q5M PRN PRN Reason: ANGINA Ticagrelor (Brilinta*) 90 mg PO BID [facility] Last Admin: 12/15/19 09:17 Dose: 90 mg Objective Vital Signs: Temp Pulse Resp BP Pulse Ox 98.3 F 100 20 128/78 100 12/15/19 11:15 12/15/19 11:15 12/15/19 11:34 12/15/19 11:15 12/15/19 11:15 Laboratory Results: 12/14/19 06:27 12/15/19 12:17 INR (Anticoag Therapy) 1.20 (0.82-1.09) H 12/14/19 00:43 APTT 31.6 seconds (26.0-38.0) 12/14/19 00:43 Total Bilirubin 0.50 mg/dL (0.2-1.0) 12/14/19 06:27 AST 16 U/L (13-39) 12/14/19 06:27 ALT 8 U/L (7-52) 12/14/19 06:27 Alkaline Phosphatase 44 U/L (34-104) 12/14/19 06:27 CK-MB (CK-2) 9.4 ng/mL (0.6-6.3) H 12/14/19 14:20 Total Protein 7.2 g/dL (6.4-8.9) 12/14/19 06:27 Albumin 4.2 g/dL (3.2-5.2) 12/14/19 06:27 Globulin 3.0 g/dL (2-4) 12/14/19 06:27 Albumin/Globulin Ratio 1.4 (1-3) 12/14/19 06:27 Triglycerides 86 mg/dL 12/14/19 06:27 Cholesterol 100 mg/dL 12/14/19 06:27 LDL Cholesterol 49 mg/dL 12/14/19 06:27 HDL Cholesterol 33.7 mg/dL 12/14/19 06:27 12/14/19 12/14/19 12/14/19 00:43 06:27 14:20 Troponin I 0.05 H* 0.74 H* 0.61 H* Assessment/Plan Agree w above. Scattered petechiae. RRA ok. Tired, stressed but ambulating. Exam neg.
[2019-12-15] MEDS: clonazePAM TAB(*) 1 MG PO PRN (11:27)
[2019-12-15 12:51] LABS: BUN/Creatinine Ratio 24.4 (8-20); Calcium 9.6 mg/dL (8.6-10.3); EGFR African American 111.7 (>60); EGFR Non-African American 92.3 (>60); Potassium 4.5 mmol/L (3.5-5.0)
[2019-12-15] MEDS: Atorvastatin* 40 MG TAB PO SCH (16:19)
--- NOTE | 2019-12-15 16:23 | PN ---
Subjective Date of Service: 12/15/19 Interval History: Pt is feeling well. He denies any chest pain or SOB. He has ambulated around the floor without difficulty. He states his pharmacy in [place] will be fedex'ing his meds to him. New meds will need to be sent to a local pharmacy. Objective Active Medications: Amlodipine Besylate (Norvasc Tab*) 5 mg PO DAILY [facility] Last Admin: 12/15/19 09:17 Dose: 5 mg Aspirin (Aspirin 81 Mg Chew Tab*) 81 mg PO DAILY [facility] Last Admin: 12/15/19 09:17 Dose: 81 mg Atorvastatin Calcium (Lipitor*) 40 mg PO 1700 [facility] Last Admin: 12/14/19 17:59 Dose: 40 mg Clonazepam (Klonopin Tab(*)) 2 mg PO BID PRN PRN Reason: ANXIETY Last Admin: 12/15/19 11:27 Dose: 2 mg Heparin Sodium (Porcine) (Heparin Vial(*)) 5,000 units SUBCUT Q12HR [facility] Last Admin: 12/15/19 09:17 Dose: 5,000 units Lisinopril (Prinivil Tab*) 5 mg PO DAILY [facility] Last Admin: 12/15/19 09:17 Dose: 5 mg Methadone HCl (Dolophine Tab*) 80 mg PO DAILY [facility] Last Admin: 12/15/19 09:16 Dose: 80 mg Metoprolol Succinate (Toprol Xl Tab*) 25 mg PO DAILY [facility] Last Admin: 12/15/19 09:17 Dose: 25 mg Nitroglycerin (Nitroglycerin Tab 0.4 Mg*) 0.4 mg SL Q5M PRN PRN Reason: ANGINA Ticagrelor (Brilinta*) 90 mg PO BID [facility] Last Admin: 12/15/19 09:17 Dose: 90 mg Vital Signs - 8 hr 12/15/19 12/15/19 12/15/19 09:16 11:15 11:27 Temperature 98.3 F Pulse Rate 100 Respiratory 16 16 16 Rate Blood Pressure 128/78 (mmHg) O2 Sat by Pulse 100 Oximetry 12/15/19 11:34 Temperature Pulse Rate Respiratory 20 Rate Blood Pressure (mmHg) O2 Sat by Pulse Oximetry Oxygen Devices in Use Now: None Appearance: Thin middle aged male sitting up in bed, NAD Eyes: No Scleral Icterus Ears/Nose/Mouth/Throat: Mucous Membranes Moist Respiratory: Symmetrical Chest Expansion and Respiratory Effort, Clear to Auscultation Cardiovascular: NL Sounds; No Murmurs; No JVD, RRR, No Edema Abdominal: NL Sounds; No Tenderness; No Distention Extremities: No Clubbing, Cyanosis Skin: No Nodules or Sclerosis Neurological: Alert and Oriented x 3 Result Diagrams: 12/14/19 06:27 12/15/19 12:17 Microbiology and Other Data: Microbiology 12/14/19 03:29 Nasal Screen MRSA (PCR) - Final Nasal Mrsa Not Detected Assess/Plan/Problems-Billing Mr Chance is a 54 yo M who has a h/o HIV, CAD, HTN, HLD, thrombocytopenia and COPD who presented to the ER with c/o chest pain and was found to have EKG changes with positive troponin and was taken emergently to the catheterization lab where he was found to have a 90% mid LAD stenosis that was successfully stented with a JOSÉ. - Patient Problems (1) NSTEMI (non-ST elevated myocardial infarction) Current Visit: Yes Status: Acute Code(s): I21.4 - NON-ST ELEVATION (NSTEMI) MYOCARDIAL INFARCTION SNOMED Code(s): 43246416 Comment: Pt had an LAD JOSÉ placed. Continue ASA and brilinta. He is CP free. Continue metoprolol, lisinopril, lipitor. Echo shows normal EF and no wall motion abnormalities. Will follow up with cardiology about d/c home. He did have 5 beats of VT this AM and with that he was asymptomatic. (2) HTN (hypertension) Current Visit: Yes Status: Acute Code(s): I10 - ESSENTIAL (PRIMARY) HYPERTENSION SNOMED Code(s): 77991598 Comment: BP is under good control. Pt to continue on amlodipine 5mg daily, lisinopril 5mg daily and metoprolol XL 25mg daily. Monitor and adjust meds as needed. (3) Thrombocytopenia Current Visit: Yes Status: Acute Code(s): D69.6 - THROMBOCYTOPENIA, UNSPECIFIED SNOMED Code(s): 459332021 Comment: ? secondary to HAART/HIV/splenomegaly. Plt count has been relatively stable. He is now dual antiplatelet-will need to watch very closely. Will follow up with oncology tomorrow. (4) HIV (human immunodeficiency virus infection) Current Visit: Yes Status: Chronic Comment: Pt's HAART is on hold. He in fact takes Biktarvy not Odefsey. (5) Hyperlipidemia Current Visit: Yes Status: Chronic Code(s): E78.5 - HYPERLIPIDEMIA, UNSPECIFIED SNOMED Code(s): 80691665 Comment: Continue lipitor 40mg daily. (6) Polysubstance abuse Current Visit: Yes Status: Chronic Code(s): F19.10 - OTHER PSYCHOACTIVE SUBSTANCE ABUSE, UNCOMPLICATED SNOMED Code(s): 168922456 Comment: Continue methadone. Pt has established with [facility] in [place]. He takes oxycodone IR 30mg only as needed. (7) Hepatitis C Current Visit: Yes Status: Chronic Comment: Pt was treated in the past. (8) DVT prophylaxis Current Visit: Yes Status: Acute Code(s): Z29.9 - ENCOUNTER FOR PROPHYLACTIC MEASURES, UNSPECIFIED SNOMED Code(s): 941139482 Comment: SQ heparin (9) Full code status Current Visit: Yes Status: Acute Code(s): Z78.9 - OTHER SPECIFIED HEALTH STATUS SNOMED Code(s): 689133390
[2019-12-16] MEDS: Ticagrelor* 90 MG TAB PO SCH (07:55)
[2019-12-16] MEDS: Heparin VIAL(*) 5000 UNITS/ML VIAL (FIVE THOUSAND) SUBCUT SCH (07:55)
[2019-12-16] MEDS: Lisinopril TAB* 5 MG PO SCH (07:55)
[2019-12-16] MEDS: Aspirin 81 mg CHEW TAB* 81 MG TAB.CHEW PO SCH (07:55)
[2019-12-16] MEDS: Metoprolol Succinate XL TAB* 25 MG PO SCH (07:55)
[2019-12-16] MEDS: Methadone TAB* 10 MG PO SCH (07:55)
[2019-12-16] MEDS: amLODIPine TAB* 5 MG PO SCH (07:55)
[2019-12-16] MEDS: clonazePAM TAB(*) 1 MG PO PRN (08:00)
--- NOTE | 2019-12-16 10:31 | PN ---
<Kortney Desai - Last Filed: 12/16/19 10:45> Subjective Date of Service: 12/16/19 - NSTEMI s/p JOSÉ to mid LAD. Interval History: No events last night, patient states he has not had recurrent chest pain since presentation. Around 1200 after taking a shower and ambulating back to his room he states he felt his heart race. On Telemetry at that time there was artifact but no VT/VT or AF. He was in sinus rhythm with a ventricular rate at the most 100 BPM. He seems groggy today but states he stayed up until 0300 watching TV. He is anxious to be send home and offers no further complaints. Medications Active Medications: Amlodipine Besylate (Norvasc Tab*) 5 mg PO DAILY [facility] Last Admin: 12/16/19 07:55 Dose: 5 mg Aspirin (Aspirin 81 Mg Chew Tab*) 81 mg PO DAILY [facility] Last Admin: 12/16/19 07:55 Dose: 81 mg Atorvastatin Calcium (Lipitor*) 40 mg PO 1700 [facility] Last Admin: 12/15/19 16:19 Dose: 40 mg Clonazepam (Klonopin Tab(*)) 2 mg PO BID PRN PRN Reason: ANXIETY Last Admin: 12/16/19 08:00 Dose: 2 mg Heparin Sodium (Porcine) (Heparin Vial(*)) 5,000 units SUBCUT Q12HR [facility] Last Admin: 12/16/19 07:55 Dose: 5,000 units Lisinopril (Prinivil Tab*) 5 mg PO DAILY [facility] Last Admin: 12/16/19 07:55 Dose: 5 mg Methadone HCl (Dolophine Tab*) 80 mg PO DAILY [facility] Last Admin: 12/16/19 07:55 Dose: 80 mg Metoprolol Succinate (Toprol Xl Tab*) 25 mg PO DAILY [facility] Last Admin: 12/16/19 07:55 Dose: 25 mg Nitroglycerin (Nitroglycerin Tab 0.4 Mg*) 0.4 mg SL Q5M PRN PRN Reason: ANGINA Ticagrelor (Brilinta*) 90 mg PO BID [facility] Last Admin: 12/16/19 07:55 Dose: 90 mg Objective Vital Signs: Temp Pulse Resp BP Pulse Ox 97.3 F 55 16 134/82 100 12/16/19 07:15 12/16/19 07:15 12/16/19 09:37 12/16/19 07:15 12/16/19 07:15 Oxygen Devices in Use Now: None Appearance: Frail malnourished appearing 54 year old, pleasant and cooperative in NAD. Ears/Nose/Mouth/Throat: NL Teeth, Lips, Gums, Mucous Membranes Moist Neck: NL Appearance and Movements; NL JVP, Trachea Midline Respiratory: Symmetrical Chest Expansion and Respiratory Effort, Clear to Auscultation Cardiovascular: NL Sounds; No Murmurs; No JVD, RRR, No Edema Abdominal: NL Sounds; No Tenderness; No Distention Extremities: No Edema, - - right radial access site non tender to palpation, 3+ radial pulse palpated. no hematoma. Skin: No Rash or Ulcers, - Neurological: Alert and Oriented x 3 Lines/Tubes/Other Access: Clean, Dry and Intact Peripheral IV Laboratory Results: 12/14/19 06:27 12/15/19 12:17 INR (Anticoag Therapy) 1.20 (0.82-1.09) H 12/14/19 00:43 APTT 31.6 seconds (26.0-38.0) 12/14/19 00:43 Total Bilirubin 0.50 mg/dL (0.2-1.0) 12/14/19 06:27 AST 16 U/L (13-39) 12/14/19 06:27 ALT 8 U/L (7-52) 12/14/19 06:27 Alkaline Phosphatase 44 U/L (34-104) 12/14/19 06:27 CK-MB (CK-2) 9.4 ng/mL (0.6-6.3) H 12/14/19 14:20 Total Protein 7.2 g/dL (6.4-8.9) 12/14/19 06:27 Albumin 4.2 g/dL (3.2-5.2) 12/14/19 06:27 Globulin 3.0 g/dL (2-4) 12/14/19 06:27 Albumin/Globulin Ratio 1.4 (1-3) 12/14/19 06:27 Triglycerides 86 mg/dL 12/14/19 06:27 Cholesterol 100 mg/dL 12/14/19 06:27 LDL Cholesterol 49 mg/dL 12/14/19 06:27 HDL Cholesterol 33.7 mg/dL 12/14/19 06:27 12/14/19 12/14/19 12/14/19 00:43 06:27 14:20 Troponin I 0.05 H* 0.74 H* 0.61 H* Laboratory Results - last 24 hr 12/15/19 12/15/19 12:17 12:17 Sodium 135 Potassium 4.5 Chloride 105 Carbon Dioxide 23 Anion Gap 7 BUN 21 Creatinine 0.86 Est GFR ( Amer) 111.7 Est GFR (Non-Af Amer) 92.3 BUN/Creatinine Ratio 24.4 H Glucose 84 Hemoglobin A1c 5.7 H Calcium 9.6 Diagnostic Imaging: Cardiac Catheterization Report Patient: ASH ROQUE /Age: 08 1965 54 Medical Record#: [id number] Admission Date: 12/14/19 Provider: Henrry Hernandez MD CC: [facility]; Dr. Jose L Valdez, [facility] CARDIAC CATHETERIZATION AND INTERVENTIONAL REPORT: DATE OF PROCEDURE: 12/14/19 INDICATION FOR THE PROCEDURE: The patient presents with acute coronary syndrome , non-ST elevation myocardial infarction, assessed for progression of coronary artery disease. PROCEDURE: Coronary arteriography, left heart catheterization, left ventriculography, balloon angioplasty and stenting of mid LAD with placement of a 2.75 x 20 mm long Synergy drug-eluting stent, post dilated proximally to 3.2 mm. CONSENT: The patient was interviewed and examined in the emergency room where the risks and benefits were explained. He understood them and wished to proceed. APPROACH UTILIZED: The right radial artery was assessed by ultrasound and found to be of a good enough size to utilize. As such, this was the approach taken. PRE-CARDIAC CATHETERIZATION LABORATORY RESULTS: Initially not present, but during the case, hemoglobin and hematocrit came back at 12.2 and 35 with a platelet count of 76, 000, BUN and creatinine of 22 and 1.0, sodium 136, potassium 3.8, chloride 104, bicarb 24. Troponin 0.05. INR 1.2. EQUIPMENT UTILIZED: 1. Right radial artery sheath with a 6-[place] Glidesheath Slender. 2. Diagnostic coronary catheter was a 5-[place] TIG4 catheter. 3. Diagnostic guidewire was a 260 length Jones curved guidewire. 4. Left heart catheterization catheter was a 5-[place] PIG short radial catheter. 5. The guiding catheter utilized was a 6-[place] VL3.5 curved catheter. 6. The interventional wire was a 190 cm length BMW wire. 7. The balloon angioplasty catheter utilized was a 2.5 x 15 mm long Emerge balloon. 8. The stent utilized was a 2.75 x 20 mm long Synergy drug-eluting stent. 9. The post stent deployment balloon angioplasty catheter was a 3.0 x 12 mm long [place] Emerge balloon. 10. The closure device utilized was a regular length Vasc Band. MEDICATIONS GIVEN: The patient had already received heparin in the emergency room per guideline protocol and in the slab installer, his ACT was checked and found to be subtherapeutic x2 despite additional heparin bolus, and as such, Angiomax bolus and Angiomax drip was started and heparin drip was stopped. The patient also received a radial artery cocktail including 300 mcg of nitroglycerin and 3 mg of verapamil. 1% Xylocaine was utilized for local anesthesia and 1 mg of Versed was given intravenously for sedation. This report is only to be considered final once signed by the Provider(s) as displayed in the "<Electronically Signed by >" field (s). Absence of a signature indicates the report is in a draft status and still needs to be finalized. In the event this document was created by someone other than the signing Provider, the individual initiating the document will be listed in the "Entered by:" or "Dictated by:" real. 1 of 3 *[facility]* [place] [address] Fax #: [phone] Transthoracic Echocardiogram Patient: Ash Roque : 1965 Study Date: 12/14/2019 Age: 54 Gender: M HR: 61 bpm Height: 70 in /177.8 cm BSA: 1.87 m^2 Weight: 154.7 lb /70.3 kg BMI: 22.2 kg/m^2 *[employer]: * Katie Bell *Referring Physician: * Henrry Hernandez MD *Reading Physician: * Herb Rincon MD Indications: Myocardial Infarction (new). History: Acute coronary syndrome. Risk factors: Current tobacco use. Family history is significant for coronary artery disease. Conclusions Summary: - Left ventricle: Wall thickness is mildly increased. Normal left ventricular size. Systolic function is normal. The estimated ejection fraction is 55-60%. Wall motion is normal; there are no regional wall motion abnormalities. - Normal cardiac chamber sizes. - Functionally benign heart valves. - Aorta: The aortic root is moderately dilated. - Since the prior echocardiogram completed 12/01/16, there appears to be little change. Study data: Transthoracic echocardiogram. Procedure: Transthoracic echocardiography was performed. Image quality was good. Complete 2D, spectral Doppler, and color flow Doppler. Location: ICU Patient status: Inpatient. Patient room number: 3. This report is only to be considered final once signed by the Provider(s) as displayed in the "<Electronically Signed by >" field (s). Absence of a signature indicates the report is in a draft status and still needs to be finalized. In the event this document was created by someone other than the signing Provider, the individual initiating the document will be listed in the "Entered by:" or "Dictated by:" real. EKG Data: 12/15/2019; Ectopic atrial rhythm rate 53. 1mm ST depression in V2-V4 with associated TWI inversion. 12/16/2019; pending. Telemetry 12/15/2019; sinus rate 50's. No VT/VF Assessment/Plan #1 NSTEMI; s/p JOSÉ to mid LAD with known residual disease in RCA. Troponin peaked at .74. LVEF 55-60%. No recurrent c/o chest pain since presentation. He is now on ASA 81/day in combination with Brilinta 90mg PO BID. He is to follow up next week with primary butcher assistant Dr. Valdez. No driving for 7 days, no lifting more than 5-10 lbs for 7 days. He will continue Toprol and Lipitor therapy. Evaluation of RCA disease can be done outpatient. Prescription for Brilinta was sent to [place] outpatient pharmacy. #2 h/o CAD; On ASA, Lipitor, Toprol and Brilinta therapy #3 h/o HLD; LDL 49 on Lipitor 40/day #4 Thrombocytopenia; Plts 78,000 he has had intermittent thrombocytopenia dating back to 2017. + petechiae noted on anterior chest. Denies hematuria, melena. h/o Hep C treated successfully per patient. Not clear if his antiviral could be contributing. Will differ to primary team. Given he is now on DAPT however, close observation of platelet counts should be considered. will update level today prior to discharge to ensure they are not trending down. #5 h/o HTN; Currently normotensive on current regimen. #6 Disposition; stable. Will sign off. Will update plt count prior to DC. Patient will need to obtain Brilinta from outpatient pharmacy prior to leaving [facility], script sent. Will d/w Dr. Dinh. Attending: Elio Dinh <Elio Dinh - Last Filed: 12/16/19 12:29> Medications Active Medications: Amlodipine Besylate (Norvasc Tab*) 5 mg PO DAILY [facility] Last Admin: 12/16/19 07:55 Dose: 5 mg Aspirin (Aspirin 81 Mg Chew Tab*) 81 mg PO DAILY [facility] Last Admin: 12/16/19 07:55 Dose: 81 mg Atorvastatin Calcium (Lipitor*) 40 mg PO 1700 [facility] Last Admin: 12/15/19 16:19 Dose: 40 mg Clonazepam (Klonopin Tab(*)) 2 mg PO BID PRN PRN Reason: ANXIETY Last Admin: 12/16/19 08:00 Dose: 2 mg Heparin Sodium (Porcine) (Heparin Vial(*)) 5,000 units SUBCUT Q12HR [facility] Last Admin: 12/16/19 07:55 Dose: 5,000 units Lisinopril (Prinivil Tab*) 5 mg PO DAILY [facility] Last Admin: 12/16/19 07:55 Dose: 5 mg Methadone HCl (Dolophine Tab*) 80 mg PO DAILY [facility] Last Admin: 12/16/19 07:55 Dose: 80 mg Metoprolol Succinate (Toprol Xl Tab*) 25 mg PO DAILY [facility] Last Admin: 12/16/19 07:55 Dose: 25 mg Nitroglycerin (Nitroglycerin Tab 0.4 Mg*) 0.4 mg SL Q5M PRN PRN Reason: ANGINA Ticagrelor (Brilinta*) 90 mg PO BID [facility] Last Admin: 12/16/19 07:55 Dose: 90 mg Objective Vital Signs: Temp Pulse Resp BP Pulse Ox 97.9 F 53 20 107/63 98 12/16/19 11:15 12/16/19 11:15 12/16/19 11:15 12/16/19 11:15 12/16/19 11:15 Laboratory Results: 12/16/19 10:51 12/15/19 12:17 INR (Anticoag Therapy) 1.20 (0.82-1.09) H 12/14/19 00:43 APTT 31.6 seconds (26.0-38.0) 12/14/19 00:43 Total Bilirubin 0.50 mg/dL (0.2-1.0) 12/14/19 06:27 AST 16 U/L (13-39) 12/14/19 06:27 ALT 8 U/L (7-52) 12/14/19 06:27 Alkaline Phosphatase 44 U/L (34-104) 12/14/19 06:27 CK-MB (CK-2) 9.4 ng/mL (0.6-6.3) H 12/14/19 14:20 Total Protein 7.2 g/dL (6.4-8.9) 12/14/19 06:27 Albumin 4.2 g/dL (3.2-5.2) 12/14/19 06:27 Globulin 3.0 g/dL (2-4) 12/14/19 06:27 Albumin/Globulin Ratio 1.4 (1-3) 12/14/19 06:27 Triglycerides 86 mg/dL 12/14/19 06:27 Cholesterol 100 mg/dL 12/14/19 06:27 LDL Cholesterol 49 mg/dL 12/14/19 06:27 HDL Cholesterol 33.7 mg/dL 12/14/19 06:27 12/14/19 12/14/19 12/14/19 00:43 06:27 14:20 Troponin I 0.05 H* 0.74 H* 0.61 H* Assessment/Plan platelet ct stable. Ambulating. PE stable, wrist ok. Ready for DC
[2019-12-16 11:04] LABS: ABS Eosinophils 0.1 10^3/ul (0-0.6); ABS Lymphocytes 2.1 10^3/ul (1.0-4.8); ABS Monocytes 0.3 10^3/ul (0-0.8); ABS Neutrophils 1.8 10^3/ul (1.5-7.7); Hematocrit 36 % (42-52); Hemoglobin 12.5 g/dL (14.0-18.0); Mean Corpuscular HGB Conc 34 g/dL (31-36); Mean Corpuscular Hemoglobin 32 pg (27-31); Mean Corpuscular Volume 92 fL (80-94); Mean Platelet Volume 10.9 fL (7.4-10.4); Nucleated Red Blood Cells % 0.1; Platelet Count 79 10^3/uL (150-450); Red Blood Count 3.95 10^6 /uL (4.18-5.48); Red Cell Distribution Width 16 % (10-15); White Blood Count 4.3 10^3/uL (3.5-10.8)
--- NOTE | 2019-12-16 13:55 | CONS ---
CC: Primary care; Dr. Henrry Hernandez * CONSULTATION REPORT: DATE OF CONSULT: 12/16/19 ATTENDING PHYSICIAN: Dr. Eduardo Blevins. REQUESTING PHYSICIAN: Dr. Henrry Hernandez. REASON FOR CONSULT: Thrombocytopenia. HISTORY OF PRESENT ILLNESS: Mr. Chance is a 54-year-old male with a history of HIV and hepatitis C with chronic thrombocytopenia. He was initially seen by Dr. Eduardo Blevins in consultation on 12/01/16 regarding his thrombocytopenia in the setting of an acute RI. He was diagnosed with HIV around 1999, having received several lines of antiviral therapy. Per his report, this has remained stable for some time. He was also previously treated for his Hepatitis C and this has been stable since that time as well. In regards to his thrombocytopenia, he did have a history of platelets in the 20s per his report as of 2017. His history locally reveals thrombocytopenia ranging from 48 to 79 currently. He denies any history of bleeding. He states he has never experienced any blood in the urine, stool, or bleeding from the gums or nose. He denies purpura and petechiae. Mr. Chance has also been on aspirin in the past without complication. Mr. Chance presented to the ER on 12/14/19 via EMS due to sharp left chest pain, this was similar to his presentation in 2017. In the ER, he had elevation of his ST; however, this was essentially felt to be chronic. Dr. Hernandez was consulted with concern for acute changes and a STEMI alert was called. Dr. Blevins was called to discuss recommendations in the setting of thrombocytopenia. At the time of this phone call, it was recommended that a non drug-eluting stent be used. Mr. Chance had a non-drug eluting stent with his RI in 2016. During cardiac catheterization, discovery of occlusion to the mid LAD was confirmed. He received balloon angioplasty and stenting with a long Synergy drug-eluting stent. We are being consulted for management of this in the setting of known thrombocytopenia. At this time, Mr. Chance states he feels very well and is anxious to go home. He states he is staying with his son and is going to [facility] for substance abuse history. He states he is willing to stay locally until cleared for travel to [facility] [place], and plans to move back with his son. PAST MEDICAL HISTORY: 1. RI: November 2016 with [id number] stent placed. 2. Hepatitis C: Nonreactive and currently off therapy. 3. HIV: Diagnosed in 1999 and has been managed effectively on antiretroviral therapy. 4. Substance abuse history: On methadone and followed by appropriate services. 5. Thrombocytopenia: As above. HOME MEDICATIONS: 1. Albuterol 2 puffs inhaled q.4 hours p.r.n. wheezing. 2. Amlodipine 5 mg p.o. daily. 3. Aspirin 81 mg p.o. daily. 4. Biktarvy 50/200/25 mg 1 p.o. daily. 5. Clonazepam 2 mg p.o. b.i.d. p.r.n. anxiety. 6. Cardura 4 mg p.o. at bedtime. 7. TriCor 54 mg p.o. daily. 8. Vascepa 1 g p.o. daily. 9. Methadone 80 mg p.o. daily. 10. Metoprolol 25 mg p.o. daily. 11. Nadolol 20 mg p.o. daily. 12. Rosuvastatin 10 mg daily. 13. Senna 1 tab daily. DISCHARGE MEDICATIONS: To include: 1. Aspirin 81 mg p.o. daily. 2. Amlodipine 5 mg p.o. daily. 3. Atorvastatin 40 mg p.o. daily. 4. Clonazepam 2 mg p.o. b.i.d. p.r.n. anxiety. 5. Lisinopril 5 mg daily. 6. Methadone 80 mg p.o. daily. 7. Metoprolol 25 mg daily. 8. Nitroglycerin sublingual p.r.n. chest pain. 9. Brilinta 90 mg p.o. b.i.d. ALLERGIES: PENICILLIN. FAMILY HISTORY: Father at 42 of a heart attack, sister at 33 of AIDS , he states there is a history of diabetes in his family. SOCIAL HISTORY: He has lived in [facility] [place] for some time, but is currently living locally with his son. He is seen at [facility] for history of substance abuse and is currently on methadone; he denies any active substance abuse. REVIEW OF SYSTEMS: General: He states he feels rather well and is anxious to go home. No fever, chills, or night sweats. Cardiac: No further chest pain, denies palpitations. Respiratory: States breathing is fine. Denies shortness of breath. GI: Denies nausea, vomiting, diarrhea, and constipation, good appetite. : States he is urinating fine without any evidence of blood in his urine. Musculoskeletal: Denies any ambulatory difficulty, has some arthritis. Neurologic: Denies headaches and dizziness. Has a history of peripheral neuropathy. Denies any significant change. PHYSICAL EXAM: Vital Signs: Temperature 97.9 degrees Fahrenheit, heart rate 53 , respiratory rate 20, oxygen saturation 98% on room air, blood pressure is 107/ 63. General: Alert and oriented x3. Extraocular movements intact with neuro grossly nonfocal. He is communicating clearly and states good understanding of his plan of care. Heart rate is regular. S1, S2. Sinus rhythm on telemetry with heart rate stable. Lungs sounds clear bilaterally with mildly diminished bases. No wheeze or rhonchi. Abdomen: Positive bowel sounds. Soft and nontender. He does have scattered petechiae to his chest, small bruising from prior IV sites. DIAGNOSTIC STUDIES/LAB DATA: WBCs 4.3 with normal differential, hemoglobin 12.3 , hematocrit 36, MCV 92, MCH 32, RDW 16, platelet count is 79 with MPV 10.9. Chemistries: Noncontributory, LFTs WNL. ASSESSMENT AND PLAN: This is a 54-year-old male status post drug-eluting stent to the mid left anterior descending coronary artery, with a history of human immunodeficiency virus and hepatitis C as well as chronic thrombocytopenia. Thrombocytopenia is felt secondary to known viral disease and likely a component related to his antiviral therapy. 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 1. In the setting of a drug-eluting stent and dual antiplatelet therapy, he will need close monitoring of his platelets, expect his platelets to drop into the 40s at some point in the next year. He has been counseled on monitoring for any signs of bleeding and how to contact our office. 2. Further recommendations to occur from the cardiology and hospitalist teams. 3. Follow up with Dr. Blevins in 1 month with repeat CBC. Thank you for this consultation. Please do not hesitate to call if there should be further questions or concerns. OSCAR BRIONES, DIE STAMPING PRESS OPERATOR [id number]/[facility] #: [id number] [facility] RIVERSIDE HOSPITALHermelindo
[2019-12-16 14:53] VITALS: BP 153/85
--- NOTE | 2019-12-17 22:30 | DS ---
CC: Dr. Blevins, Dr. Austin; Dr. Valdez; [facility]* DISCHARGE SUMMARY: DATE OF ADMISSION: 12/14/19 DATE OF DISCHARGE: 12/16/19 PRIMARY CARE PROVIDER: To establish with [facility]. CINETECHNICIAN: Dr. Blevins. PASSENGER TRAIN BRAKER: Dr. Valdez. HIV SPECIALIST: To establish with Dr. Austin. PRINCIPAL DIAGNOSIS: Non-ST elevation myocardial infarction. SECONDARY DIAGNOSES: 1. Human immunodeficiency virus. 2. Hypertension. 3. Hyperlipidemia. 4. Anxiety. 5. Chronic pain. DISCHARGE MEDICATIONS: 1. Biktarvy 1 tab p.o. daily. 2. Amlodipine 5 mg p.o. daily. 3. Senna 8.6 one tab p.o. daily. 4. Crestor 20 mg p.o. daily (increased dose). 5. Metoprolol XL 25 mg p.o. daily. 6. Methadone 80 mg p.o. daily. 7. Aspirin 81 mg p.o. daily. 8. Albuterol 2 puffs inhaled q.4 hours p.r.n. shortness of breath. 9. Oxycodone 30 mg p.o. b.i.d. p.r.n. pain. 10. Clonazepam 2 mg p.o. b.i.d. p.r.n. anxiety. 11. Brilinta 90 mg p.o. b.i.d. (new). 12. Nitroglycerin 0.4 mg subcu 5 minutes p.r.n. chest pain (new). 13. Lisinopril 5 mg p.o. daily (new). HOSPITAL COURSE: Mr. Chance is a 54-year-old male, who has a history of HIV and coronary artery disease, who presented to the emergency room on 12/14/19 with complaints of left-sided chest pain. He reported the pain to being similar to when he had his OR several years ago. The patient was taken urgently to the catheterization lab where he was found to have a ruptured plaque with a 90% stenosis of the mid LAD. The patient had a drug-eluting stent placed after consultation by Dr. Hernandez with Dr. Blevins. The patient subsequently was chest pain free. He denied any shortness of breath. The patient's medication regimen was adjusted slightly. It took a couple of days to get the patient's accurate medication list from his pharmacy. At this point, he has now been started on lisinopril in addition to continuing to take aspirin and metoprolol. In addition, he was also started on Brilinta. The patient also underwent transthoracic echocardiogram which revealed an EF of 55% to 60% with normal wall motion. There are no regional wall motion abnormalities. In addition to the mid LAD lesion seen on catheterization, the patient was also found to have JOSUE 1 to 2 flow with critical ostial narrowing of 95% with greater than 90- degree angle off the main body of the RCA. The caliber of the vessel was difficult to assess. The mid portion of the right coronary artery had diffuse disease with narrowing as much as a 75%. Due to the patient having residual stenosis that could be problematic to intervene on, medical management was recommended. The patient will need to follow up with Dr. Valdez as an outpatient for further management of this. In addition to the cardiac care he received during his hospitalization, the patient was seen by Oncology/ Hematology. It was recommended that the patient have his platelet count monitored intermittently. He will need to follow up with Dr. Blevins in approximately 1 month with a repeat CBC. PHYSICAL EXAMINATION: On the day of discharge, the patient is awake, alert, and oriented, sitting up in the bed in no acute distress. Cardiac exam reveals a normal S1 and S2 with a regular rate and rhythm. Lungs are clear. Abdomen is soft, nontender, and nondistended. He moves all 4 extremities symmetrically. He walks steadily. FOLLOWUP CONCERNS: The patient is to follow up with the [facility] to establish care on 12/30/19 at 9 a.m. He is to follow up with Dr. Jose L Valdez on 12/23/19 at 9:30 a.m., with Dr. Blevins on 01/13/20 at 11:20 a.m., and the phone number for Dr. Austin's office has been provided to the patient to call for his HIV care. ACTIVITY: Activity level is per post-cath instructions. CONDITION ON DISCHARGE: Stable. DIET: Heart healthy. TIME SPENT: Thirty-five minutes was spent discharging this patient. [id number]/[facility] #: [id number] MTDD
== END 2019-12-16 17:12 | disposition home or self-care (01) | DRG 247 ==
LOC: ED 00:11 → CHICATH 01:35 → ICU 03:09 → MEDTELE 13:33
PROVIDERS: ADMIT Student in an Organized Health Care Education/Training Program; ATTEND Hospitalist
PROC: B2111ZZ Fluoroscopy of Multiple Coronary Arteries using Low Osmolar Contrast (ICD-10-PCS; 2019-12-14)
PROC: B2151ZZ Fluoroscopy of Left Heart using Low Osmolar Contrast (ICD-10-PCS; 2019-12-14)
PROC: 4A023N7 Measurement of Cardiac Sampling and Pressure, Left Heart, Percutaneous Approach (ICD-10-PCS; 2019-12-14)
PROC: 027034Z Dilation of Coronary Artery, One Artery with Drug-eluting Intraluminal Device, Percutaneous Approach (ICD-10-PCS; principal; 2019-12-14 01:30)
DX: I21.4 Non-ST elevation (NSTEMI) myocardial infarction (principal); I25.10 Atherosclerotic heart disease of native coronary artery without angina pectoris; I10 Essential (primary) hypertension; E78.5 Hyperlipidemia, unspecified; Z21 Asymptomatic human immunodeficiency virus [HIV] infection status; J44.9 Chronic obstructive pulmonary disease, unspecified; G89.4 Chronic pain syndrome; G62.9 Polyneuropathy, unspecified; F17.210 Nicotine dependence, cigarettes, uncomplicated; D69.6 Thrombocytopenia, unspecified; F19.10 Other psychoactive substance abuse, uncomplicated; F41.9 Anxiety disorder, unspecified; Z79.02 Long term (current) use of antithrombotics/antiplatelets; Z95.5 Presence of coronary angioplasty implant and graft; I25.2 Old myocardial infarction; Z86.19 Personal history of other infectious and parasitic diseases; Z79.899 Other long term (current) drug therapy; Z79.82 Long term (current) use of aspirin; Z88.0 Allergy status to penicillin; Z28.21 Immunization not carried out because of patient refusal
CPT/HCPCS: 36415; 71045; 80048; 80053; 80061; 82550; 82553; 83036; 83605; 83721; 84484; 85025; 85610; 85730; 87641; 93005; 93306; 93458; 99156; 99157; 99223; 99285; A9270-GY; C1725; C1769; C1876; C1887; C9600-LD; J0583; J1644; J2250; J3010